=== PATIENT | male | born 1940 | race Caucasian/White ===

== ENCOUNTER 2017-07-21 21:55 | Inpatient (IN) | payer MEDICARE, BC ==
[~2017-07-21] VITALS: Ht 172.7 cm; Wt 68.0 kg
--- NOTE | 2017-07-21 22:24 | NUR ---
PT BIB [employer] ON 5150 HOLD FOR DTS/DTO, HAVING AUDITORY AND VISUAL HALLUCINATIONS. AOX1 W/ RESP EVEN & UNLABORED, DENIES ANY PAIN OR MEDICAL COMPLAINTS AT THIS TIME, CALM AND COOPERATIVE W/ NAD NOTED.
--- NOTE | 2017-07-21 22:37 | NUR ---
pharmacy picking tech at bedside for blood draw. Ambulatory w/ steady gait to restroom, urine obtained & sent to lab.
[2017-07-21 22:55] LABS: BASOPHILS # (AUTO) 0.1 /CMM (0.0-0.2); BASOPHILS % (AUTO) 1.3 % (0.0-2.0); EOSINOPHILS # (AUTO) 0.1 /CMM (0.0-0.7); EOSINOPHILS % (AUTO) 0.9 % (0.0-6.0); HEMATOCRIT 32 % (39-51); HEMOGLOBIN 10.3 g/dL (13.5-17.5); LYMPHOCYTES # (AUTO) 0.6 /CMM (0.8-4.8); LYMPHOCYTES % (AUTO) 7.3 % (20.0-44.0); MEAN CORPUSCULAR HEMOGLOBIN 31 PG (26.0-33.0); MEAN CORPUSCULAR HGB CONC 32 g/dl (31.0-36.0); MEAN CORPUSCULAR VOLUME 94 fL (80-96); MONOCYTES # (AUTO) 0.7 /CMM (0.1-1.30); NEUTROPHILS # (AUTO) 6.8 /CMM (1.8-8.9); NEUTROPHILS % (AUTO) 82.5 % (43.0-81.0); PLATELET COUNT (AUTO) 287 /CMM (150-450); RDW COEFFICIENT OF VARIATION 19.3 (11.5-15.0); RED BLOOD CELL COUNT(AUTO) 3.36 MIL/uL (4.5-6.0); WHITE BLOOD COUNT (AUTO) 8.3 K/uL (4.3-11.0)
--- NOTE | 2017-07-21 23:00 | NUR ---
Report given to LASHELL Ferguson for pt DEMARCO, pt admission to [facility] rm [id number].
[2017-07-21] MEDS ORDERED: HYDR25TA4 PO (23:01)
[2017-07-21] MEDS ORDERED: LISI-603 PO (23:01)
[2017-07-21] MEDS ORDERED: PRED20TA PO (23:01)
[2017-07-21] MEDS ORDERED: CLOP75TA2 PO (23:01)
[2017-07-21 23:11] LABS: CARBON DIOXIDE 30 mmol/L (21-32); CHLORIDE 105 mmol/L (98-107); GLUCOSE 77 mg/dL (74-106); POTASSIUM 5.5 mmol/L (3.5-5.1); SODIUM SERUM 145 mmol/L (136-145); UREA NITROGEN, BLOOD 30 mg/dL (7-18)
[2017-07-21 23:15] LABS: BILIRUBIN,URINE 2+ (NEGATIVE); BLOOD, URINE 1+ Ery/uL (NEGATIVE); COLOR,URINE YELLOW (YELLOW); KETONES,URINE 1+ (NEGATIVE); LEUKOCYTE ESTERASE ,URINE NEGATIVE (NEGATIVE); NITRITE, URINE NEGATIVE (NEGATIVE); PH,URINE 5.5 (5.0-8.0); PROTEIN,URINE 1+ mg/dl (NEGATIVE); UGLUCOSE NEGATIVE (NEGATIVE); UROBILINOGEN,URINE 0.2 EU/dL (0.2)
[2017-07-21 23:22] LABS: APPEARANCE,URINE HAZY (CLEAR)
[2017-07-21 23:23] LABS: ALANINE AMINOTRANSFERASE 23 U/L (12-78); ALBUMIN 3.1 g/dL (3.4-5.0); ALCOHOL, BLOOD < 3 mg/dL (0-0); ALKALINE PHOSPHATASE 88 U/L (46-116); ASPARTATE AMINOTRANSFERASE 31 U/L (15-37); BILIRUBIN,DIRECT 0.2 mg/dL (0.0-0.2); BILIRUBIN,TOTAL 0.7 mg/dL (0.2-1.0); SALICYLATE 2.9 mg/dL (2.8-20.0)
[2017-07-21 23:27] LABS: BACTERIA,URINE None seen /HPF (None Seen); HYALINE CASTS, URINE Few /LPF (None Seen); SQUAMOUS EPITHELIAL CELL,UR Few /HPF (None Seen)
[2017-07-21 23:29] LABS: ACETAMINOPHEN 0 ug/ml (10-30)
[2017-07-22] VITALS: BP 133/85
[2017-07-22] MEDS ORDERED: MAGNESIUM HYDROXIDE 30 ML UDC PO PRN (00:30)
[2017-07-22] MEDS ORDERED: ACETAMINOPHEN 325 MG TABLET PO PRN (00:30)
[2017-07-22] MEDS ORDERED: MAG HYDROX/AL HYDROX/SIMETH 30 ML UDC PO PRN (00:30)
[2017-07-22] MEDS ORDERED: QUET25TA PO (00:35)
[2017-07-22] MEDS ORDERED: BUDE0.5A NEB (00:36)
[2017-07-22] MEDS ORDERED: ALBU8.5H2 PO (00:36)
[2017-07-22] MEDS ORDERED: BUDE0.5A4 (00:36)
[2017-07-22] MEDS ORDERED: BUPR150T10 PO (00:36)
[2017-07-22] MEDS ORDERED: GABA100C PO (00:36)
[2017-07-22] MEDS ORDERED: CLON0.5T4 PO (00:36)
[2017-07-22] MEDS ORDERED: TAMS0.4C34 PO (00:36)
[2017-07-22] MEDS ORDERED: TRAZ-144 PO (00:36)
[2017-07-22] MEDS ORDERED: METO-302 PO (00:36)
[2017-07-22] MEDS ORDERED: GABA-532 PO (00:36)
[2017-07-22] MEDS ORDERED: ALBUTEROL SULFATE 8 GM HFA.AER.AD IH SCH (01:00)
--- NOTE | 2017-07-22 02:06 | NUR ---
ADMISSION NOTES ADMITTED THIS 77 Y/O MALE PATIENT ADMIT FROM [facility] ER , PT. INTIALLY CAME FROM HOME. PT IS ON 5150 HOLD FOR , DANGER TO HER SELF , DANGER TO OTHERS PER HOLD PARANOID, THINKS [employer] ARE GOING INTO HIS HOUSE, NEIGHBOR APPARENTLY CALLED [employer] BECAUSE HE WAS OUTSIDE THEIR HOUSE SWING A LARGE SWORD , DELUSIONAL, PARANOID, AUDITORY AND VISUAL HALLUCINATION. UPON FACE TO FACE ASSESSMENT PATIENT IS A&O X1-2, DEPRESSED DISORGANIZED ANXIOUS , EASILY AGITATED ,THE PT. MOOD DEPRESSED PT. IS POOR HISTORIAN, POOR INSIGHT ,POOR JUDGEMENT ,V/S WNL, NO ACUTE RESPIRATORY ,MD AWARE AND NOTIFIED OF THE ADMISSION, PT. REFUSED TO SIGNS ON ADMISSION DOCMENTS AND , SKIN ASSESSMENT DONE, PICTURES TAKEN AND PLACED IN THE CHART. BELONGINGS AND CONTRABAND CHECKED AND PLACED IN THE SAFE CABINET. PATIENT RIGHT HAND BOOK GIVEN AND EXPLAINED TO THE PT. ALL NEEDS ATTENDED AND ANTICIPATED.ENCOURAGED PT. VERVALIZED ANY FEELING OR CONCERN TO STAFF, ORIENTED TO UNIT WILL CONTINUE TO MONITOR FOR SAFETY AND BEHAVIOR.
[2017-07-22 07:26] LABS: CALCIUM, SERUM 9.2 mg/dL (8.5-10.1); CHLORIDE 105 mmol/L (98-107); CREATININE 1.7 mg/dL (0.6-1.3); GLUCOSE 87 mg/dL (74-106); SODIUM SERUM 143 mmol/L (136-145); UREA NITROGEN, BLOOD 26 mg/dL (7-18)
[2017-07-22 07:30] LABS: CARBON DIOXIDE 29 mmol/L (21-32)
[2017-07-22] MEDS ORDERED: BUDESONIDE RESPULE INH 0.25 MG/2 ML AMPUL.NEB NEB SCH (08:30)
[2017-07-22] MEDS ORDERED: ALBUTEROL FS 2.5 MG/3 ML VIAL.NEB NEB PRN (08:30)
[2017-07-22] MEDS: predniSONE 20 MG TABLET PO SCH (08:37)
[2017-07-22] MEDS: CLOPIDOGREL BISULFATE 75 MG TABLET PO SCH (08:37)
[2017-07-22] MEDS: GABAPENTIN 100 MG CAPSULE PO SCH ×3 (08:37→16:16)
[2017-07-22] MEDS: TAMSULOSIN 0.4 MG CAP.SR.24H PO SCH (08:37)
[2017-07-22] MEDS: METOPROLOL SUCCINATE 25 MG TAB.SR.24H PO SCH (08:38)
[2017-07-22] MEDS: HYDROCHLOROTHIAZIDE 25 MG TABLET PO SCH (08:38)
[2017-07-22 08:43] VITALS: BP 148/87
[2017-07-22] MEDS ORDERED: BUDESONIDE 0.5 MG SCH (09:00)
[2017-07-22] MEDS ORDERED: LISINOPRIL (20MG) 20 MG TABLET PO SCH (09:00)
[2017-07-22] MEDS: QUETIAPINE FUMARATE 100 MG TABLET PO SCH ×2 (12:30→16:15)
--- NOTE | 2017-07-22 12:50 | NUR ---
GPS RN NOTE: PER DR EMILY Rocha ORDER NEPHROLOGY CONSULT DR NEELIMA KNIGHT , ORDER PLACED ,DR ANTONIO.
[2017-07-22] MEDS: BUPROPION XL 150 MG TAB.ER.24 PO SCH (13:47)
--- NOTE | 2017-07-22 14:12 | NUR ---
Initial discharge plan: [place] [id number] [place] [address] / . SW international relations professor left a message for the pt.s son (Grady Ray- [phone]). SW to communicate with his son regarding most appropriate discharge plan and SW will assess for safety of patient's home- as patient possibly owns weapons. Assigned JOVITA Patten to follow up. SW to help and form safe and proper discharge.
[2017-07-22 16:00] VITALS: BP 103/57
[2017-07-22] MEDS: BUDESONIDE RESPULE INH 0.5 MG/2 ML AMPUL.NEB NEB SCH ×2 (16:56→20:17)
--- NOTE | 2017-07-22 16:56 | NUR ---
RT NOTE: PATIENT RECEIVED FROM RT(KALEN) WITH MISSED MEDICATION. PATIENT WOKEN UP BUT REFUSED TREATMENT AND WANT TO START RESPIRATORY TREATMENT ON THE NEXT SCHEDULED TIME. NO SOB NOTED. WILL ENDORSE TO NOC RT.
--- NOTE | 2017-07-22 19:30 | NUR ---
GPS RN NOTE, RECEIVED PATIENT AWAKE AND IN BED NO S/S OR COMPLAINTS OF PAIN AT THIS TIME. PATIENT IS DISPLAYING NO S/S OF APPARENT DISTRESS AT THIS TIME. PATIENT BREATHING IS UNLABORED WITH EQUAL RISE AND FALL OF THE CHEST. PATIENT IS ALERT AND ORIENTED X2 ON ROOM AIR WITH A SPOO2 94 %. PATIENT IS MED COMPLIANT, DISORGANIZED, CONFUSED AT TIMES, DEPRESSED, ISOLATIVE, AND NEEDS REORIENTATION. PATIENT DENIES SUICIDE IDEATIONS AND HOMICIDAL IDEATIONS AT THIS TIME. PATIENT ASSISTED WITH TURNING AND REPOSITIONING Q2HR AND PRN FOR COMFORT AND CIRCULATION. PATIENT HAS NO NEEDS AT THIS TIME. PATIENT EDUCATED ON THE USE OF THE CALL SUAZO. PATIENT BED SIDE RAILS UP X 2 FOR SAFETY. PATIENT BED IS LOCKED AND LOW WILL CONTINUE TO MONITOR AND MAINTAIN SAFETY Q15 MIN WITH THE HELP OF STAFF.
[2017-07-22 20:14] VITALS: BP 95/53
[2017-07-22] MEDS: TRAZODONE 50 MG TABLET PO SCH (21:38)
--- NOTE | 2017-07-22 21:42 | NUR ---
GPS RN NOTE, PATIENT REFUSED TO TAKE SEROQUEL 50 MG PO HS. OFFERED SEROQUEL THREE TIMES AND STILL PATIENT REFUSED STATING, " I DON'T MEDICATION IT'S NOT NATURAL FOR MY BODY ". EDUCATED THE PATIENT ON THE RISKS AND BENEFITS OF TAKING AND REFUSING AFOREMENTIONED MEDICATION. WILL CONTINUE TO MONITOR THIS PATIENT CLOSELY.
--- NOTE | 2017-07-23 07:00 | NUR ---
RN OPENING NOTE PT RESTING CALM IN BED. DENIES SI/HI. DENIES AVH. MOVES ALL EXT. A&OX2. FREE FROM INJURY AT PRESENT. WILL CONT TO MONITOR.
[2017-07-23] MEDS: BUDESONIDE RESPULE INH 0.5 MG/2 ML AMPUL.NEB NEB SCH ×2 (07:34→19:22)
[2017-07-23] MEDS: QUETIAPINE FUMARATE 100 MG TABLET PO SCH ×2 (08:30→16:28)
[2017-07-23] MEDS: BUPROPION XL 150 MG TAB.ER.24 PO SCH (08:30)
[2017-07-23] MEDS: CLOPIDOGREL BISULFATE 75 MG TABLET PO SCH (08:30)
[2017-07-23] MEDS: TAMSULOSIN 0.4 MG CAP.SR.24H PO SCH (08:30)
[2017-07-23] MEDS: METOPROLOL SUCCINATE 25 MG TAB.SR.24H PO SCH (08:30)
[2017-07-23] MEDS: predniSONE 20 MG TABLET PO SCH (08:30)
[2017-07-23] MEDS: HYDROCHLOROTHIAZIDE 25 MG TABLET PO SCH (08:31)
[2017-07-23] MEDS: GABAPENTIN 100 MG CAPSULE PO SCH ×3 (08:31→16:27)
[2017-07-23 09:05] VITALS: BP 131/82
[2017-07-23 09:16] LABS: ALANINE AMINOTRANSFERASE 17 U/L (12-78); ALBUMIN 2.4 g/dL (3.4-5.0); ALKALINE PHOSPHATASE 74 U/L (46-116); ASPARTATE AMINOTRANSFERASE 15 U/L (15-37); BILIRUBIN,TOTAL 0.3 mg/dL (0.2-1.0); CALCIUM, SERUM 9.3 mg/dL (8.5-10.1); CARBON DIOXIDE 37 mmol/L (21-32); CHLORIDE 105 mmol/L (98-107); CREATININE 1.4 mg/dL (0.6-1.3); GLUCOSE 89 mg/dL (74-106); POTASSIUM 3.8 mmol/L (3.5-5.1); SODIUM SERUM 143 mmol/L (136-145); UREA NITROGEN, BLOOD 32 mg/dL (7-18)
[2017-07-23 09:18] LABS: CHOLESTEROL 135 mg/dL (<200); HDL CHOLESTEROL 49 mg/dL (40-60); LDL 68 mg/dL (0-99); TRIGLYCERIDES 74 mg/dL (30-150)
--- NOTE | 2017-07-23 10:43 | NUR ---
relay worker faxed initial review packet to [facility] (phone: [phone]/ fax: [phone]) Elkin W [facility]ys[facility] o[facility]ns. [facility] [id number]. relay worker will follow-up.
[2017-07-23 16:32] VITALS: BP 107/69
--- NOTE | 2017-07-23 18:46 | NUR ---
RN CLOSING NOTE PT RESTING CALM IN BED. DENIES SI/HI. DENIES AVH. MOVES ALL EXT. A&OX2. FREE FROM INJURY AT PRESENT. WILL ENDORSE TO IRIS LOBO.
[2017-07-23 19:56] VITALS: BP 109/80
[2017-07-23 20:00] VITALS: BP 109/80
[2017-07-23] MEDS: TRAZODONE 50 MG TABLET PO SCH (21:08)
[2017-07-24 08:00] VITALS: BP 127/65
[2017-07-24] MEDS: BUDESONIDE RESPULE INH 0.5 MG/2 ML AMPUL.NEB NEB SCH (08:23)
[2017-07-24] MEDS: GABAPENTIN 100 MG CAPSULE PO SCH ×3 (11:10→17:36)
[2017-07-24] MEDS: QUETIAPINE FUMARATE 100 MG TABLET PO SCH ×2 (11:10→17:34)
[2017-07-24] MEDS: BUPROPION XL 150 MG TAB.ER.24 PO SCH (11:10)
[2017-07-24] MEDS: TAMSULOSIN 0.4 MG CAP.SR.24H PO SCH (11:10)
[2017-07-24] MEDS: METOPROLOL SUCCINATE 25 MG TAB.SR.24H PO SCH (11:11)
[2017-07-24] MEDS: predniSONE 20 MG TABLET PO SCH (11:11)
[2017-07-24] MEDS: HYDROCHLOROTHIAZIDE 25 MG TABLET PO SCH (11:11)
[2017-07-24] MEDS: CLOPIDOGREL BISULFATE 75 MG TABLET PO SCH (11:12)
[2017-07-24 11:45] VITALS: BP 101/60
--- NOTE | 2017-07-24 11:56 | NUR ---
RN-CO: Around 11:45 am , ANODIC TREATER found patient on the floor, lying down, face down. He is awake, alert and deny pain. However patient is confused and unable to elaborate what happened. Noted a abrasion on the nose 0.5 cm x 0.1 cm., and a laceration of 0.5 x 0.[address] Velasco, then she came to see and examined the patient with order of a suture ( from ER staff) the discharge the patient to telemetry for further evaluation. Dr Peres who was covering for Dr Newberry was notified as well as the dewatering filtering supervisor. The wounds was cleansed and dressing was done. Patient denied any body pain and discomforts aside from the sustained laceration.
--- NOTE | 2017-07-24 12:25 | NUR ---
RN-CO: Patient's son was notified about the incident, and the order of Dr Velasco to discharge him to Telemetry for further evaluation. vital signs: 101/60,99.91%,98.
[2017-07-24 14:05] VITALS: BP 100/70
--- NOTE | 2017-07-24 14:05 | NUR ---
RN NOTES PATIENT BACK FROM ER, HAS A 4 SUTURES ON UNDER CHIN, INTACT, NO BLEEDING, V/S TAKEN BP -100 70, P-94, T-98.5, R-18, O2 -94 ROOM AIR. PATIENT CONFUSED, UNSTEADY GAIT, 1:1 SITTER NEXT TO THE BED FOR SAFETY. PATIENT GOING TO TRANSFER TELE UNIT PER MD ORDER. CALL SUAZO NEAR TO REACH, BED ALARM ON SAFETY PRECAUTION MAINTAINED ALL THE TIME. PICTURE TAKEN.
--- NOTE | 2017-07-24 14:10 | NUR ---
RN-CO:Dr. Luz was notified of the order to discharge patient to telemetry. Dr Luz ordered to continue 72 hour hold and discharge patient to telemetry, noted and carried out. Still waiting for the RN space control supervisor to call for the room. Patient was also sutured on the chin at the emergency department(escorted by staff), came back in a stable condition.
[2017-07-24 16:00] VITALS: BP 101/61
--- NOTE | 2017-07-24 18:15 | NUR ---
DISCHARGE NOTES PATIENT DISCHARGE AT THIS TIME TO THE TELE ROOM [address] DIAZ DX OF FALL, AND HAS A LACERATION UNDER THE CHIN,AND 4 SUTURES PUT ON ER. PATIENT A/O X2/3, MED COMPLIANT, V/S TAKEN BP- 101/61, P- 87, R-18, T-98.3, 02 ROOM AIR. ESCORTED PATIENT ON WHEELCHAIR WITH 1:1 SITTER FOR SAFETY. PATIENT ON [address] WHTILOCK, CHING AND CONTRABAND RETURNED BACK TO THE PATIENT, FAMILY AWARE OF DISCHARGE. BEDSIDE REPORT GIVEN LASHELL ABAD. RN VERBALIZED UNDERSTANDING.
[2017-07-24] MEDS ORDERED: ACET-868 PO (19:01)
[2017-07-24] MEDS ORDERED: MAG30ORA PO (19:01)
[2017-07-24] MEDS ORDERED: BUPR300T52 PO (19:01)
[2017-07-24] MEDS ORDERED: ALBU2.5V38 IH (19:01)
[2017-07-24] MEDS ORDERED: MAGN400O6 PO (19:01)
[2017-07-24] MEDS ORDERED: QUET25TA PO (19:01)
== END 2017-07-24 18:13 | disposition short-term general hospital (02) | DRG 885 ==
LOC: ER 21:59 → GPS 23:10
PROVIDERS: ADMIT Psychiatry & Neurology Psychiatry; ATTEND Psychiatry & Neurology Psychiatry
DX: F25.9 Schizoaffective disorder, unspecified (principal); N17.0 Acute kidney failure with tubular necrosis; N18.9 Chronic kidney disease, unspecified; J44.9 Chronic obstructive pulmonary disease, unspecified; F29 Unspecified psychosis not due to a substance or known physiological condition; D64.9 Anemia, unspecified; I12.9 Hypertensive chronic kidney disease with stage 1 through stage 4 chronic kidney disease, or unspecified chronic kidney disease; Z79.899 Other long term (current) drug therapy; Z79.02 Long term (current) use of antithrombotics/antiplatelets; Z73.6 Limitation of activities due to disability; I25.10 Atherosclerotic heart disease of native coronary artery without angina pectoris; R55 Syncope and collapse; N40.0 Benign prostatic hyperplasia without lower urinary tract symptoms
CPT/HCPCS: 36415; 80048-TC; 80053-TC; 80061-TC; 80076-TC; 80305; 81000-TC; 85025-TC; 87081-TC; G0480

== ENCOUNTER 2017-07-24 18:51 | Inpatient (IN) | payer MEDICARE, BC ==
[~2017-07-24] VITALS: Ht 172.7 cm; Wt 66.7 kg
[~2017-07-24 18:51] MED LIST: ALBU8.5H2 PO; BUDE0.5A NEB; BUDE0.5A4; CLOP75TA2 PO; GABA-532 PO; GABA100C PO; HYDR25TA4 PO; LISI-603 PO; METO-302 PO; PRED20TA PO; TAMS0.4C34 PO
[2017-07-24] MEDS ORDERED: ACET-868 PO (19:01)
[2017-07-24] MEDS ORDERED: MAG30ORA PO (19:01)
[2017-07-24] MEDS ORDERED: QUET25TA PO (19:01)
[2017-07-24] MEDS ORDERED: ALBU2.5V38 IH (19:01)
[2017-07-24] MEDS ORDERED: MAGN400O6 PO (19:01)
[2017-07-24] MEDS ORDERED: BUPR300T52 PO (19:01)
[2017-07-24 20:00] VITALS: BP 131/60
--- NOTE | 2017-07-24 20:00 | NUR ---
RN INITIAL ADIMITTING NOTES RECEIVED 77 YR OLD IN BED, AWAKE, AOX2-3, WITH CONFUSION, AT TIMES TALKING TO THE WALL, CLAIMING TO BE TALKING TO THE SON, RE ORIENTED PT ABOUT WHERE ABOUT. ON R/A N0 SIGN OF SOB, DENIES ANY PAIN. S/P FALL, WITH 1:1 SITTER @ THIS TIME, WELL LOW BP MONITORING FOR ORTHOSTATIC BP MEASURE 91/ 58 SUPINE, BED SIDE, 95/59 AND STANDING 101/59. HEAD TO TOE ASSESSMENT COMPLETED NOTED WITH STICHES @ LOWER CHIN REST OF BODY INTACT, AMBULATORY WITH UNSTAEDY GAIT WITH ASSIST, FALL PRECAUTION PLACE, WILL CONT TO MONITOR. ALL ADMITTING ORDERS ENTERED. BY DR DIAZ.
[2017-07-24] MEDS ORDERED: MAGNESIUM HYDROXIDE 30 ML UDC PO PRN ×2 (21:30)
[2017-07-24] MEDS ORDERED: ONDANSETRON HCL/PF 4 MG/2 ML VIAL IVP PRN (21:30)
[2017-07-24] MEDS ORDERED: MAG HYDROX/AL HYDROX/SIMETH 30 ML UDC PO PRN ×2 (21:30)
[2017-07-24] MEDS ORDERED: ACETAMINOPHEN 325 MG TABLET PO PRN ×2 (21:30)
[2017-07-24] MEDS ORDERED: Z GUARD REMEDY 2 OZ OINT TP PRN (21:30)
--- NOTE | 2017-07-24 21:55 | NUR ---
INFORMED RADIOLOGY REGARDING IMAGING ORDERS. PER TECH, WILL BE DONE TOMORROW, THEY WONT BE ABLE TO DO TODAY DUE TO BEING BUSY WITH ER. INFORMED PRIMARY NURSE.
[2017-07-25] VITALS (7 sets, daily range): BP systolic 79–136; BP diastolic 54–89
--- NOTE | 2017-07-25 06:24 | NUR ---
PROSTHETICS TECHNICIAN CLOSING NOTES ENDORSED PT IN BED, AWAKE, AOX2-3, WITH CONFUSION, AT TIMES TALKING TO THE WALL, CLAIMING TO BE TALKING TO THE SON, RE ORIENTED PT ABOUT WHERE ABOUT. ON R/A N0 SIGN OF SOB, DENIES ANY PAIN. S/P FALL, WITH 1:1 SITTER @ THIS TIME, WELL LOW BP MONITORING FOR ORTHOSTATIC BP. WILL ENDORSE TO AM NURSE TO F/U ON ALL LABS ORDERED IN AM, WELL CT HEAD WO CONTRAST AMBULATORY WITH UNSTAEDY GAIT WITH ASSIST, FALL PRECAUTION PLACE, WILL CONT TO MONITOR.
[2017-07-25 07:23] LABS: BASOPHILS % (AUTO) 0.1 % (0.0-2.0); HEMATOCRIT 32 % (39-51); HEMOGLOBIN 10.6 g/dL (13.5-17.5); LYMPHOCYTES # (AUTO) 0.3 /CMM (0.8-4.8); MEAN CORPUSCULAR HEMOGLOBIN 31 PG (26.0-33.0); MEAN CORPUSCULAR HGB CONC 33 g/dl (31.0-36.0); MEAN CORPUSCULAR VOLUME 94 fL (80-96); MONOCYTES # (AUTO) 0.6 /CMM (0.1-1.30); MONOCYTES % (AUTO) 7.3 % (2.0-12.0); NEUTROPHILS # (AUTO) 7.7 /CMM (1.8-8.9); NEUTROPHILS % (AUTO) 88.6 % (43.0-81.0); PLATELET COUNT (AUTO) 244 /CMM (150-450); RDW COEFFICIENT OF VARIATION 19.5 (11.5-15.0); RED BLOOD CELL COUNT(AUTO) 3.36 MIL/uL (4.5-6.0); WHITE BLOOD COUNT (AUTO) 8.7 K/uL (4.3-11.0)
[2017-07-25 07:24] LABS: APPEARANCE,URINE CLEAR (CLEAR); BILIRUBIN,URINE NEGATIVE (NEGATIVE); BLOOD, URINE TRACE Ery/uL (NEGATIVE); COLOR,URINE YELLOW (YELLOW); KETONES,URINE NEGATIVE (NEGATIVE); LEUKOCYTE ESTERASE ,URINE NEGATIVE (NEGATIVE); NITRITE, URINE NEGATIVE (NEGATIVE); PROTEIN,URINE NEGATIVE (NEGATIVE); UGLUCOSE NEGATIVE (NEGATIVE); UROBILINOGEN,URINE 0.2 EU/dL (0.2)
[2017-07-25 07:31] LABS: CALCIUM, SERUM 9.8 mg/dL (8.5-10.1); CARBON DIOXIDE 37 mmol/L (21-32); CHLORIDE 98 mmol/L (98-107); CREATININE 1.3 mg/dL (0.6-1.3); GLUCOSE 95 mg/dL (74-106); SODIUM SERUM 139 mmol/L (136-145); UREA NITROGEN, BLOOD 33 mg/dL (7-18)
[2017-07-25 07:37] LABS: ALANINE AMINOTRANSFERASE 20 U/L (12-78); ALBUMIN 2.5 g/dL (3.4-5.0); ALKALINE PHOSPHATASE 75 U/L (46-116); ASPARTATE AMINOTRANSFERASE 21 U/L (15-37); BILIRUBIN,TOTAL 0.4 mg/dL (0.2-1.0); MAGNESIUM 1.9 mg/dL (1.8-2.4); PHOSPHORUS 3.3 mg/dL (2.5-4.9); TOTAL PROTEIN, SERUM 6.3 g/dL (6.4-8.2)
[2017-07-25 07:52] LABS: CHOLESTEROL 148 mg/dL (<200); HDL CHOLESTEROL 50 mg/dL (40-60); LDL 77 mg/dL (0-99); TRIGLYCERIDES 92 mg/dL (30-150)
--- NOTE | 2017-07-25 08:00 | NUR ---
TELE1/RN AM SHIFT INITIAL NOTES RECEIVED PT AWAKE SITTING IN BED, NO ACUTE CHANGE OF CONDITION NOTED. PT A/O X 2, DENIES ANY SYMPTOMS, NOTED WITH VISUAL HALLUCINATION. COOPERATIVE. ON ROOM AIR SATURATING @ 94%, LUNG SOUNDS CLEAR. ON TELE WITH SINUS RHYTHM, HR 89. PT HAS NO IV SITE AT THIS TIME. PT IS COMFORTABLE AT THIS TIME. SCHEDULED AM MEDS TO BE GIVEN. SITTER AT BEDSIDE. CL WITHIN REACHED AND SAFETY MAINTAINED. ON GOING MONITORING.
[2017-07-25 08:42] LABS: BACTERIA,URINE Rare /HPF (None Seen); RBC,URINE 0-2 /HPF (0-2); SQUAMOUS EPITHELIAL CELL,UR Rare /HPF (None Seen)
[2017-07-25] MEDS ORDERED: BUPROPION XL 150 MG TAB.ER.24 PO SCH (09:00)
[2017-07-25] MEDS ORDERED: HYDROCHLOROTHIAZIDE 25 MG TABLET PO SCH (09:00)
[2017-07-25] MEDS: predniSONE 20 MG TABLET PO SCH (09:38)
[2017-07-25] MEDS: LISINOPRIL (20MG) 20 MG TABLET PO SCH (09:38)
[2017-07-25] MEDS: GABAPENTIN 100 MG CAPSULE PO SCH ×3 (09:38→16:30)
[2017-07-25] MEDS: CLOPIDOGREL BISULFATE 75 MG TABLET PO SCH (09:38)
[2017-07-25] MEDS: QUETIAPINE FUMARATE 25 MG TABLET PO SCH ×2 (09:39→16:30)
[2017-07-25] MEDS: ALBUTEROL FS 2.5 MG/3 ML VIAL.NEB IH PRN (10:21)
[2017-07-25] MEDS: BUDESONIDE RESPULE INH 0.5 MG/2 ML AMPUL.NEB IH SCH ×2 (10:22→19:20)
--- NOTE | 2017-07-25 11:00 | NUR ---
TELE1/RN ROUNDS - DR. DIAZ PT SEEN & EXAMINED BY DR. DIAZ, NO NEW ORDERS RECEIVED AT THIS TIME. MONITORING CONTINUED.
[2017-07-25] MEDS: IV NS 0.9% 1,000 ML IV PRN ×2 (11:11→18:29)
--- NOTE | 2017-07-25 13:17 | NUR ---
TELE1/RN ROUNDS - DR. GUY PT SEEN & EXAMINED BY DR. GUY. NO NEW ORDERS RECEIVED AT THIS TIME. MONITORING CONTINUED.
--- NOTE | 2017-07-25 16:30 | NUR ---
TELE1/RN AFTERNOON ROUNDS PT SITTING IN BED WITH SITTER AT BEDSIDE. NO CHANGE OF CONDITION. ON GOING MONITORING.
--- NOTE | 2017-07-25 19:36 | NUR ---
TELE1/RN AM SHIFT END NOTES ALL NEEDS MET. NO CHANGE OF CONDITION NOTED DURING THE SHIFT. PT ENDORSED TO PM NURSE TO CONTINUE CARE. SITTER AT BEDSIDE, SAFETY MAINTAINED.
--- NOTE | 2017-07-25 19:56 | NUR ---
TELE1 RN INITIAL NOTES RECEIVED PT AWAKE SITTING IN BED, NO ACUTE CHANGE OF CONDITION NOTED. PT A/O X 2, DENIES ANY SYMPTOMS, NOTED WITH VISUAL HALLUCINATION. COOPERATIVE. ON ROOM AIR SATURATING @ 94%, LUNG SOUNDS CLEAR. ON TELE WITH SINUS RHYTHM, HR 89. PT HAS SAHIL MIDLINE W NS @ 125ML/HR, WELL BASIM, NO SIGN OF FLUID VOL EXCESS OR INFILTRATION @ SITE, V/S STABLE @ THIS TIME. PT IS COMFORTABLE AT THIS TIME. SCHEDULED AM MEDS TO BE GIVEN. SITTER AT BEDSIDE. CL WITHIN REACHED AND SAFETY MAINTAINED. ON GOING MONITORING.
[2017-07-25] MEDS: HYDROCODONE/APAP 5/325MG 1 EACH TABLET PO PRN (20:55)
[2017-07-26] VITALS (8 sets, daily range): BP systolic 95–153; BP diastolic 53–96
[2017-07-26] MEDS: IV NS 0.9% 1,000 ML IV PRN ×2 (02:36→11:43)
[2017-07-26] MEDS: HYDROCODONE/APAP 5/325MG 1 EACH TABLET PO PRN (06:21)
--- NOTE | 2017-07-26 06:23 | NUR ---
TELE1 RN CLOSING NOTES ENDORSED PT AWAKE SLEEPING IN BED, NO ACUTE CHANGE OF CONDITION NOTED. PT A/O X 2, DENIES ANY SYMPTOMS, NOTED WITH VISUAL HALLUCINATION. COOPERATIVE. ON ROOM AIR SATURATING @ 94%, LUNG SOUNDS CLEAR. ON TELE WITH SINUS RHYTHM, HR 89. PT HAS SAHIL MIDLINE W NS @ 125ML/HR, WELL BASIM, NO SIGN OF FLUID VOL EXCESS OR INFILTRATION @ SITE, V/S STABLE @ THIS TIME. PT IS COMFORTABLE AT THIS TIME. SCHEDULED AM MEDS TO BE GIVEN. SITTER AT BEDSIDE. CL WITHIN REACHED AND SAFETY MAINTAINED. ON GOING MONITORING.
[2017-07-26 07:50] LABS: EOSINOPHILS # (AUTO) 0.1 /CMM (0.0-0.7); HEMATOCRIT 32 % (39-51); HEMOGLOBIN 10.3 g/dL (13.5-17.5); LYMPHOCYTES # (AUTO) 0.3 /CMM (0.8-4.8); LYMPHOCYTES % (AUTO) 3.1 % (20.0-44.0); MEAN CORPUSCULAR HEMOGLOBIN 31 PG (26.0-33.0); MEAN CORPUSCULAR HGB CONC 33 g/dl (31.0-36.0); MEAN CORPUSCULAR VOLUME 94 fL (80-96); MONOCYTES # (AUTO) 0.9 /CMM (0.1-1.30); MONOCYTES % (AUTO) 9.4 % (2.0-12.0); NEUTROPHILS # (AUTO) 8.6 /CMM (1.8-8.9); NEUTROPHILS % (AUTO) 86.5 % (43.0-81.0); PLATELET COUNT (AUTO) 260 /CMM (150-450); RDW COEFFICIENT OF VARIATION 19.1 (11.5-15.0); RED BLOOD CELL COUNT(AUTO) 3.36 MIL/uL (4.5-6.0); WHITE BLOOD COUNT (AUTO) 9.9 K/uL (4.3-11.0)
[2017-07-26 07:52] LABS: TROPONIN I < 0.017 ng/mL (0.00-0.056)
[2017-07-26 07:54] LABS: ALANINE AMINOTRANSFERASE 21 U/L (12-78); ALBUMIN 2.5 g/dL (3.4-5.0); ALKALINE PHOSPHATASE 73 U/L (46-116); ASPARTATE AMINOTRANSFERASE 21 U/L (15-37); BILIRUBIN,TOTAL 0.5 mg/dL (0.2-1.0); CALCIUM, SERUM 9.3 mg/dL (8.5-10.1); CARBON DIOXIDE 35 mmol/L (21-32); CHLORIDE 101 mmol/L (98-107); CREATININE 1.1 mg/dL (0.6-1.3); GLUCOSE 84 mg/dL (74-106); MAGNESIUM 1.9 mg/dL (1.8-2.4); PHOSPHORUS 2.7 mg/dL (2.5-4.9); POTASSIUM 3.8 mmol/L (3.5-5.1); SODIUM SERUM 139 mmol/L (136-145); TOTAL PROTEIN, SERUM 6.2 g/dL (6.4-8.2); UREA NITROGEN, BLOOD 32 mg/dL (7-18)
--- NOTE | 2017-07-26 08:00 | NUR ---
TELE1/RN AM SHIFT INITIAL NOTES RECEIVED PT ASLEEP IN BED WITH SITTER AT BEDSIDE. PT A/O X 1, CONFUSED, HAS VISUAL HALLUCINATIONS. FOLLOWS COMMAND, PLEASANT. ON ROOM AIR SATURATING @ 93%, ON TELE WITH SINUS TACHY, HR 114. WITH ON GOING IV HYDRATION OF NS @ 125CC/HR, MIDLINE PATENT WITH NO S/S OF INFECTION. PT IS COMFORTABLE AT THIS TIME. SAFETY MAINTAINED. ON GOING MONITORING.
[2017-07-26] MEDS: BUDESONIDE RESPULE INH 0.5 MG/2 ML AMPUL.NEB IH SCH ×2 (08:15→20:19)
[2017-07-26] MEDS: CLOPIDOGREL BISULFATE 75 MG TABLET PO SCH (09:13)
[2017-07-26] MEDS: GABAPENTIN 100 MG CAPSULE PO SCH ×3 (09:13→17:17)
[2017-07-26] MEDS: predniSONE 20 MG TABLET PO SCH (09:13)
[2017-07-26] MEDS: BUPROPION XL 150 MG TAB.ER.24 PO SCH (09:13)
[2017-07-26] MEDS: LISINOPRIL (20MG) 20 MG TABLET PO SCH (09:13)
[2017-07-26] MEDS: QUETIAPINE FUMARATE 25 MG TABLET PO SCH ×3 (09:14→20:38)
[2017-07-26 10:24] LABS: THYROID STIMULATING HORMONE 1.263 uIU/mL (0.358-3.74)
--- NOTE | 2017-07-26 11:25 | NUR ---
TELE1/RN ROUNDS - DR. GUY UPDATED PT'S CONDITION. PT SEEN & EXAMINED BY DR. GUY. NO NEW ORDERS RECEIVED AT THIS TIME. BUT NOTIFIED ME OF SOME ADJUSTMENT ON PSYCH MEDS, NOTED. MONITORING CONTINUED.
--- NOTE | 2017-07-26 17:30 | NUR ---
TELE1/RN AFTERNOON ROUNDS NO CHANGE OF CONDITION. MONITORING CONTINUED.
--- NOTE | 2017-07-26 19:05 | NUR ---
PIVOT END POLISHER OPENING NOTES RECEIVED REPORT FROM JENNIFFER LOBO. PATIENT A/A/O X2 W/ SOME AUDITORY HALLUCINATIONS NOTED. ABLE TO STATE PAIN ON PAIN SCALE. BREATHING EVEN & UNLABORED, ON ROOM AIR. DENIES SOB OR DIFFICULTY BREATHING. ON TELE SINUS TACH IN THE 100S. DENIES ANY CHEST PAIN OR DISCOMFORT. RIGHT UPPER ARM MIDLINE #18 INTACT & PATENT W/ DRESSING CDI & IVF NS @ 125 ML/HR. SAFETY MEASURES IN PLACE W/ SIDE RAILS UP, BED LOCKED IN LOWEST POSITION & CALL LIGHT WITHIN REACH. SITTER @ BEDSIDE. WILL CONTINUE TO MONITOR.
--- NOTE | 2017-07-26 20:15 | NUR ---
TELE1/RN AM SHIFT END NOTES NO ACUTE CHANGE OF CONDITION NOTED DURING THE SHIFT. ALL NEEDS MET. PT ENDORSED TO PM NURSE TO CONTINUE CARE. PT WITH SITTER AT BEDSIDE. SAFETY MAINTAINED.
[2017-07-27] VITALS: BP 145/93
[2017-07-27] MEDS: ALBUTEROL FS 2.5 MG/3 ML VIAL.NEB IH PRN (00:24)
[2017-07-27] MEDS: IV NS 0.9% 1,000 ML IV PRN ×4 (03:16→16:14)
[2017-07-27 04:00] VITALS: BP 151/96
[2017-07-27 07:10] LABS: EOSINOPHILS % (AUTO) 0.3 % (0.0-6.0); HEMATOCRIT 30 % (39-51); HEMOGLOBIN 9.9 g/dL (13.5-17.5); LYMPHOCYTES # (AUTO) 0.3 /CMM (0.8-4.8); LYMPHOCYTES % (AUTO) 3.1 % (20.0-44.0); MEAN CORPUSCULAR HEMOGLOBIN 31 PG (26.0-33.0); MEAN CORPUSCULAR HGB CONC 33 g/dl (31.0-36.0); MEAN CORPUSCULAR VOLUME 94 fL (80-96); MONOCYTES # (AUTO) 0.7 /CMM (0.1-1.30); MONOCYTES % (AUTO) 8.3 % (2.0-12.0); NEUTROPHILS # (AUTO) 7.6 /CMM (1.8-8.9); NEUTROPHILS % (AUTO) 88.3 % (43.0-81.0); PLATELET COUNT (AUTO) 256 /CMM (150-450); RDW COEFFICIENT OF VARIATION 19.4 (11.5-15.0); RED BLOOD CELL COUNT(AUTO) 3.21 MIL/uL (4.5-6.0); WHITE BLOOD COUNT (AUTO) 8.6 K/uL (4.3-11.0)
--- NOTE | 2017-07-27 07:15 | NUR ---
RN NOTES RECEIVED PATIENT AOX2-3 , DENIES AND SOB , DISCOMFORT SUICIDAL OR HOMICIDAL IDEATION AT THIS TIME , CALM AND COOPERATIVE , NO AUDITORY HALLUCINATIONS AT THIS TIME , ST 105 ON TELE MONITOR , SAHIL MIDLINE # 18 WITH NS @ 125ML/HR INFUSING WELL , ALL NEEDS ATTENDED , BED ON LOW AND LOCKED POSITION , SIDE RAILS X2 ,CALL LIGHT WITHIN REACH , HOB @ 35 , 1:1 SITTER AT BEDSIDE , WILL CONTINUE TO MONITOR
[2017-07-27] MEDS: BUDESONIDE RESPULE INH 0.5 MG/2 ML AMPUL.NEB IH SCH ×2 (07:30→19:46)
[2017-07-27 07:31] LABS: ALANINE AMINOTRANSFERASE 21 U/L (12-78); ALBUMIN 2.4 g/dL (3.4-5.0); ALKALINE PHOSPHATASE 70 U/L (46-116); ASPARTATE AMINOTRANSFERASE 21 U/L (15-37); BILIRUBIN,TOTAL 0.4 mg/dL (0.2-1.0); CALCIUM, SERUM 9.4 mg/dL (8.5-10.1); CARBON DIOXIDE 33 mmol/L (21-32); CHLORIDE 103 mmol/L (98-107); GLUCOSE 79 mg/dL (74-106); MAGNESIUM 1.9 mg/dL (1.8-2.4); PHOSPHORUS 2.9 mg/dL (2.5-4.9); POTASSIUM 3.9 mmol/L (3.5-5.1); SODIUM SERUM 140 mmol/L (136-145); TOTAL PROTEIN, SERUM 6.2 g/dL (6.4-8.2); UREA NITROGEN, BLOOD 27 mg/dL (7-18)
[2017-07-27 07:36] LABS: TROPONIN I < 0.017 ng/mL (0.00-0.056)
[2017-07-27 08:00] VITALS: BP_SYST 101; BP_SYST 117; BP_SYST 88; BP_DIAS 45; BP_DIAS 61; BP_DIAS 75
[2017-07-27] MEDS: BUPROPION XL 150 MG TAB.ER.24 PO SCH (08:31)
[2017-07-27] MEDS: CLOPIDOGREL BISULFATE 75 MG TABLET PO SCH (08:31)
[2017-07-27] MEDS: QUETIAPINE FUMARATE 25 MG TABLET PO SCH ×3 (08:31→20:45)
[2017-07-27] MEDS: predniSONE 20 MG TABLET PO SCH (08:31)
[2017-07-27] MEDS: GABAPENTIN 100 MG CAPSULE PO SCH ×3 (08:31→16:05)
[2017-07-27] MEDS: LISINOPRIL (20MG) 20 MG TABLET PO SCH (08:32)
--- NOTE | 2017-07-27 10:45 | NUR ---
RN NOTES SEEN AND EVALUATED BY DR DIAZ , SPO2 OF 98% VIA RA , NOT IN ACUTE DISTRESS , DISCUSSED LABS , MD AWARE . MEDICALLY CLEARED PER , SHAAN TO TRANSFER TO [facility] , AWAITING FOR ORDERERS
[2017-07-27 12:00] VITALS: BP 131/80
--- NOTE | 2017-07-27 15:27 | NUR ---
RN NOTES NOTIFIED DR DIAZ THAT PT IS HAVING PRODUCTIVE COUGH , ASKED FO COUGH SYRUP ORDER PRN , TELEPHONE ORDER OF ROBITUSSIN 5ML Q6 PRN CARRIED OUT
[2017-07-27] MEDS ORDERED: GUAIFENESIN/D-METHORPHAN HB 5 ML UDC PO PRN (15:30)
[2017-07-27 16:00] VITALS: BP 124/88
[2017-07-27 20:00] VITALS: BP_SYST 110; BP_SYST 120; BP_SYST 153; BP_DIAS 71; BP_DIAS 72; BP_DIAS 90
[2017-07-28] VITALS: BP 160/97
[2017-07-28] MEDS: HYDROCODONE/APAP 5/325MG 1 EACH TABLET PO PRN (00:52)
[2017-07-28 04:00] VITALS: BP 139/87
[2017-07-28 06:45] LABS: EOSINOPHILS # (AUTO) 0.1 /CMM (0.0-0.7); EOSINOPHILS % (AUTO) 0.8 % (0.0-6.0); HEMATOCRIT 31 % (39-51); HEMOGLOBIN 10.4 g/dL (13.5-17.5); LYMPHOCYTES # (AUTO) 0.4 /CMM (0.8-4.8); LYMPHOCYTES % (AUTO) 4.3 % (20.0-44.0); MEAN CORPUSCULAR HEMOGLOBIN 31 PG (26.0-33.0); MEAN CORPUSCULAR HGB CONC 33 g/dl (31.0-36.0); MEAN CORPUSCULAR VOLUME 94 fL (80-96); MONOCYTES # (AUTO) 0.9 /CMM (0.1-1.30); MONOCYTES % (AUTO) 9.3 % (2.0-12.0); NEUTROPHILS # (AUTO) 8.5 /CMM (1.8-8.9); NEUTROPHILS % (AUTO) 85.6 % (43.0-81.0); PLATELET COUNT (AUTO) 284 /CMM (150-450); RDW COEFFICIENT OF VARIATION 18.8 (11.5-15.0); RED BLOOD CELL COUNT(AUTO) 3.32 MIL/uL (4.5-6.0); WHITE BLOOD COUNT (AUTO) 9.9 K/uL (4.3-11.0)
[2017-07-28 07:05] LABS: ALANINE AMINOTRANSFERASE 30 U/L (12-78); ALBUMIN 2.6 g/dL (3.4-5.0); ALKALINE PHOSPHATASE 75 U/L (46-116); ASPARTATE AMINOTRANSFERASE 25 U/L (15-37); BILIRUBIN,TOTAL 0.5 mg/dL (0.2-1.0); CALCIUM, SERUM 9.6 mg/dL (8.5-10.1); CARBON DIOXIDE 32 mmol/L (21-32); CHLORIDE 103 mmol/L (98-107); CREATININE 1.1 mg/dL (0.6-1.3); GLUCOSE 78 mg/dL (74-106); MAGNESIUM 1.9 mg/dL (1.8-2.4); PHOSPHORUS 2.7 mg/dL (2.5-4.9); POTASSIUM 4.5 mmol/L (3.5-5.1); SODIUM SERUM 140 mmol/L (136-145); TOTAL PROTEIN, SERUM 6.4 g/dL (6.4-8.2); UREA NITROGEN, BLOOD 30 mg/dL (7-18)
--- NOTE | 2017-07-28 07:55 | NUR ---
MOLECULAR BIOLOGIST NOTE PATIENT IN BED , SITTER AT BEDSIDE ON HOLD 5250 ORDERED, ON RA ,NO SOB NOTED , ON TELE MONITOR ST 104 , HAVING BREAKFAST , ABLE TO EAT SELF , RT UPPER ARM MIDLINE IN PLACE, NO S\S INFECTION NOTED , ON IVF ORDERED, BED IN LOWEST AND LOCKED POSITION , ORTHOSTATIC BP DONE ORDERED ,RESPIRATION EVEN UNLABORED, WILL CONT TO MONITOR CLOSELY
[2017-07-28 08:00] VITALS: BP 153/90
[2017-07-28] MEDS: GABAPENTIN 100 MG CAPSULE PO SCH ×2 (08:23→12:45)
[2017-07-28] MEDS: predniSONE 20 MG TABLET PO SCH (08:23)
[2017-07-28] MEDS: CLOPIDOGREL BISULFATE 75 MG TABLET PO SCH (08:23)
[2017-07-28] MEDS: BUPROPION XL 150 MG TAB.ER.24 PO SCH (08:24)
[2017-07-28] MEDS: LISINOPRIL (20MG) 20 MG TABLET PO SCH (08:24)
[2017-07-28] MEDS: QUETIAPINE FUMARATE 25 MG TABLET PO SCH ×2 (08:24→12:45)
[2017-07-28] MEDS: BUDESONIDE RESPULE INH 0.5 MG/2 ML AMPUL.NEB IH SCH (08:27)
--- NOTE | 2017-07-28 09:00 | NUR ---
TUFTER NOTE ORTHOSTATIC BP DONE ORDERED
[2017-07-28 09:33] VITALS: BP 163/106
[2017-07-28 09:37] VITALS: BP 144/80
--- NOTE | 2017-07-28 10:41 | NUR ---
WORKFORCE MANAGEMENT MANAGER NOTE ENTRY LEVEL PROJECT COORDINATOR FROM [facility] AT BEDSIDE FOR EVAL AND MARY FROM EEG DOING NOW EEG
[2017-07-28 12:00] VITALS: BP 144/80
--- NOTE | 2017-07-28 13:00 | NUR ---
APPLICATION SERVICES MANAGER NOTE PER DR TORRES ORDER OK TO DISCHARGE TO [facility] , CALLED ASSOCIATE PROFESSOR OF CRIMINAL JUSTICE , BED IS AVAILABLE
[2017-07-28] MEDS ORDERED: FLU VACC QS 2017-18(36MOS+)/PF 0.5 ML DISP.SYRIN IM ONE (13:30)
--- NOTE | 2017-07-28 14:03 | NUR ---
LABORATORY ANIMAL CARE VETERINARIAN NOTE TELE REMOVED RT UPPER ARM MIDLINE, REMOVED TELE , REPORT GIBES TO SANTOS LOBO
--- NOTE | 2017-07-28 14:34 | NUR ---
INSPECTOR BOILER NOTE TAKEN TO [facility] UNIT ORDERED , WENT TO UNIT BY W\C WITH STABLE CONDITION, SPOKE WITH SANTOS LOBO AND ADMISSION NURSE
[2017-07-28] MEDS ORDERED: HYDR-552 PO (15:27)
[2017-07-28] MEDS ORDERED: GUAI5SYR PO (15:27)
[2017-07-28] MEDS ORDERED: BUPR-96 PO (15:27)
== END 2017-07-28 14:09 | DRG 312 ==
LOC: TELE1 18:51 → MEDSG1 07-28 12:47
PROVIDERS: ADMIT Family Medicine; ATTEND Family Medicine
PROC: 05H533Z Insertion of Infusion Device into Right Subclavian Vein, Percutaneous Approach (ICD-10-PCS; principal; 2017-07-25)
PROC: B546ZZA Ultrasonography of Right Subclavian Vein, Guidance (ICD-10-PCS; 2017-07-25)
DX: I95.1 Orthostatic hypotension (principal); N17.0 Acute kidney failure with tubular necrosis; E44.0 Moderate protein-calorie malnutrition; G93.89 Other specified disorders of brain; D64.9 Anemia, unspecified; S01.91XA Laceration without foreign body of unspecified part of head, initial encounter; G31.09 Other frontotemporal neurocognitive disorder; F02.80 Dementia in other diseases classified elsewhere, unspecified severity, without behavioral disturbance, psychotic disturbance, mood disturbance, and anxiety; W19.XXXA Unspecified fall, initial encounter; F03.90 Unspecified dementia, unspecified severity, without behavioral disturbance, psychotic disturbance, mood disturbance, and anxiety; J44.9 Chronic obstructive pulmonary disease, unspecified; I12.9 Hypertensive chronic kidney disease with stage 1 through stage 4 chronic kidney disease, or unspecified chronic kidney disease; I25.10 Atherosclerotic heart disease of native coronary artery without angina pectoris; N18.9 Chronic kidney disease, unspecified; Z73.6 Limitation of activities due to disability; Z79.899 Other long term (current) drug therapy; Y92.009 Unspecified place in unspecified non-institutional (private) residence as the place of occurrence of the external cause
CPT/HCPCS: 36415; 36569; 70450-TC; 80053-TC; 80061-TC; 81000-TC; 82306; 82728-TC; 83540-TC; 83735-TC; 84100-TC; 84439-TC; 84443-TC; 84484-TC; 85025-TC; 87040-TC; 93307-TC; 93880-TC; 94799-TC; 95819-TC; J7030; Q2036; Z7610

== ENCOUNTER 2017-07-28 14:42 | Inpatient (IN) | payer MEDICARE, BC ==
[~2017-07-28] VITALS: Ht 177.8 cm; Wt 65.8 kg
[~2017-07-28 14:42] MED LIST changes: +ACET-868 PO; +ALBU2.5V38 IH; -ALBU8.5H2 PO; -BUDE0.5A4; +BUPR300T52 PO; -GABA100C PO; +MAG30ORA PO; +MAGN400O6 PO; +QUET25TA PO
[2017-07-28 15:00] VITALS: BP 123/85
[2017-07-28] MEDS ORDERED: HYDR-552 PO (15:27)
[2017-07-28] MEDS ORDERED: BUPR-96 PO (15:27)
[2017-07-28] MEDS ORDERED: GUAI5SYR PO (15:27)
[2017-07-28] MEDS ORDERED: MAGNESIUM HYDROXIDE 30 ML UDC PO PRN ×2 (15:30→17:30)
[2017-07-28] MEDS ORDERED: ACETAMINOPHEN 325 MG TABLET PO PRN ×2 (15:30→17:30)
[2017-07-28] MEDS ORDERED: MAG HYDROX/AL HYDROX/SIMETH 30 ML UDC PO PRN ×2 (15:30→17:30)
[2017-07-28 15:40] VITALS: BP 123/85
[2017-07-28] MEDS: GABAPENTIN 100 MG CAPSULE PO SCH (17:36)
[2017-07-28] MEDS: QUETIAPINE FUMARATE 25 MG TABLET PO SCH (17:37)
[2017-07-28] MEDS: BUDESONIDE RESPULE INH 0.5 MG/2 ML AMPUL.NEB NEB SCH (19:30)
[2017-07-28 20:09] VITALS: BP 131/84
[2017-07-28] MEDS: TEMAZEPAM 7.5 MG CAPSULE PO PRN (22:57)
[2017-07-29] MEDS: BUDESONIDE RESPULE INH 0.5 MG/2 ML AMPUL.NEB NEB SCH ×2 (07:30→19:53)
[2017-07-29 07:42] LABS: CHOLESTEROL 171 mg/dL (<200); HDL CHOLESTEROL 68 mg/dL (40-60); LDL 83 mg/dL (0-99); TRIGLYCERIDES 62 mg/dL (30-150)
[2017-07-29 07:44] LABS: ALANINE AMINOTRANSFERASE 31 U/L (12-78); ALBUMIN 2.6 g/dL (3.4-5.0); ALKALINE PHOSPHATASE 76 U/L (46-116); ASPARTATE AMINOTRANSFERASE 29 U/L (15-37); BILIRUBIN,TOTAL 0.4 mg/dL (0.2-1.0); CALCIUM, SERUM 9.7 mg/dL (8.5-10.1); CARBON DIOXIDE 33 mmol/L (21-32); CHLORIDE 102 mmol/L (98-107); CREATININE 1.1 mg/dL (0.6-1.3); GLUCOSE 78 mg/dL (74-106); SODIUM SERUM 139 mmol/L (136-145); TOTAL PROTEIN, SERUM 6.6 g/dL (6.4-8.2); UREA NITROGEN, BLOOD 32 mg/dL (7-18)
[2017-07-29 08:00] VITALS: BP 132/82
[2017-07-29] MEDS: QUETIAPINE FUMARATE 25 MG TABLET PO SCH ×2 (08:35→16:08)
[2017-07-29] MEDS: CLOPIDOGREL BISULFATE 75 MG TABLET PO SCH (08:35)
[2017-07-29] MEDS: predniSONE 20 MG TABLET PO SCH (08:35)
[2017-07-29] MEDS: GABAPENTIN 100 MG CAPSULE PO SCH ×3 (08:35→16:08)
[2017-07-29] MEDS: LISINOPRIL (20MG) 20 MG TABLET PO SCH (08:35)
[2017-07-29] MEDS: TAMSULOSIN 0.4 MG CAP.SR.24H PO SCH (08:35)
[2017-07-29] MEDS: BUPROPION XL 150 MG TAB.ER.24 PO SCH (08:35)
[2017-07-29] MEDS: METOPROLOL SUCCINATE 25 MG TAB.SR.24H PO SCH (08:36)
[2017-07-29] MEDS: HYDROCHLOROTHIAZIDE 25 MG TABLET PO SCH (08:36)
[2017-07-29] MEDS ORDERED: QUETIAPINE FUMARATE 25 MG TABLET PO SCH (09:00)
[2017-07-29] MEDS ORDERED: BUPROPION XL 150 MG TAB.ER.24 PO SCH (09:00)
[2017-07-29] MEDS: clonazePAM 0.5 MG TABLET PO PRN (15:15)
[2017-07-29] MEDS: ALBUTEROL FS 2.5 MG/3 ML VIAL.NEB IH PRN (15:32)
[2017-07-29 16:00] VITALS: BP 130/79
[2017-07-29 20:00] VITALS: BP 152/92
[2017-07-29] MEDS ORDERED: QUETIAPINE FUMARATE 100 MG TABLET PO SCH (22:00)
[2017-07-30] MEDS: TEMAZEPAM 7.5 MG CAPSULE PO PRN (00:07)
[2017-07-30] MEDS: BUDESONIDE RESPULE INH 0.5 MG/2 ML AMPUL.NEB NEB SCH ×2 (07:30→19:30)
[2017-07-30 08:00] VITALS: BP 170/99
[2017-07-30] MEDS: TAMSULOSIN 0.4 MG CAP.SR.24H PO SCH (08:52)
[2017-07-30] MEDS: CLOPIDOGREL BISULFATE 75 MG TABLET PO SCH (08:52)
[2017-07-30] MEDS: QUETIAPINE FUMARATE 25 MG TABLET PO SCH ×2 (08:53→16:16)
[2017-07-30] MEDS: METOPROLOL SUCCINATE 25 MG TAB.SR.24H PO SCH (08:53)
[2017-07-30] MEDS: HYDROCHLOROTHIAZIDE 25 MG TABLET PO SCH (08:53)
[2017-07-30] MEDS: predniSONE 20 MG TABLET PO SCH (08:53)
[2017-07-30] MEDS: BUPROPION XL 150 MG TAB.ER.24 PO SCH (08:53)
[2017-07-30] MEDS: GABAPENTIN 100 MG CAPSULE PO SCH ×3 (08:53→16:14)
[2017-07-30] MEDS: LISINOPRIL (20MG) 20 MG TABLET PO SCH (08:54)
[2017-07-30 15:55] VITALS: BP 105/75
[2017-07-30 20:00] VITALS: BP 116/64
[2017-07-31 08:00] VITALS: BP 140/57
[2017-07-31] MEDS: BUDESONIDE RESPULE INH 0.5 MG/2 ML AMPUL.NEB NEB SCH ×2 (09:11→20:17)
[2017-07-31] MEDS: predniSONE 20 MG TABLET PO SCH (10:42)
[2017-07-31] MEDS: GABAPENTIN 100 MG CAPSULE PO SCH ×3 (10:43→17:57)
[2017-07-31] MEDS: QUETIAPINE FUMARATE 25 MG TABLET PO SCH ×2 (10:43→17:58)
[2017-07-31] MEDS: LISINOPRIL (20MG) 20 MG TABLET PO SCH (10:43)
[2017-07-31] MEDS: HYDROCHLOROTHIAZIDE 25 MG TABLET PO SCH (10:43)
[2017-07-31] MEDS: TAMSULOSIN 0.4 MG CAP.SR.24H PO SCH (10:44)
[2017-07-31] MEDS: CLOPIDOGREL BISULFATE 75 MG TABLET PO SCH (10:44)
[2017-07-31] MEDS: clonazePAM 0.5 MG TABLET PO PRN ×2 (10:44→22:09)
[2017-07-31] MEDS: BUPROPION XL 150 MG TAB.ER.24 PO SCH (10:44)
[2017-07-31] MEDS: METOPROLOL SUCCINATE 25 MG TAB.SR.24H PO SCH (10:45)
[2017-07-31] MEDS: NICOTINE PATCH (21MG) 21 MG PATCH.TD24 TD SCH (10:46)
[2017-07-31 16:00] VITALS: BP 108/68
[2017-07-31 20:00] VITALS: BP 107/76
[2017-08-01 08:00] VITALS: BP 128/64
[2017-08-01] MEDS: TAMSULOSIN 0.4 MG CAP.SR.24H PO SCH (09:03)
[2017-08-01] MEDS: predniSONE 20 MG TABLET PO SCH (09:03)
[2017-08-01] MEDS: CLOPIDOGREL BISULFATE 75 MG TABLET PO SCH (09:03)
[2017-08-01] MEDS: BUPROPION XL 150 MG TAB.ER.24 PO SCH (09:03)
[2017-08-01] MEDS: GABAPENTIN 100 MG CAPSULE PO SCH ×3 (09:03→16:31)
[2017-08-01] MEDS: NICOTINE PATCH (21MG) 21 MG PATCH.TD24 TD SCH (09:03)
[2017-08-01] MEDS: QUETIAPINE FUMARATE 25 MG TABLET PO SCH ×2 (09:03→16:31)
[2017-08-01] MEDS: LISINOPRIL (20MG) 20 MG TABLET PO SCH (09:04)
[2017-08-01] MEDS: METOPROLOL SUCCINATE 25 MG TAB.SR.24H PO SCH (09:04)
[2017-08-01] MEDS: HYDROCHLOROTHIAZIDE 25 MG TABLET PO SCH (09:05)
[2017-08-01] MEDS: BUDESONIDE RESPULE INH 0.5 MG/2 ML AMPUL.NEB NEB SCH ×2 (09:14→20:21)
[2017-08-01 16:07] VITALS: BP 113/74
[2017-08-01 20:00] VITALS: BP 104/66
[2017-08-01] MEDS: ALBUTEROL FS 2.5 MG/3 ML VIAL.NEB IH PRN (20:21)
[2017-08-01] MEDS ORDERED: ALBUTEROL FS 2.5 MG/0.5 ML VIAL.NEB NEB ONE (21:00)
[2017-08-01] MEDS ORDERED: IPRATROPIUM NEB FS 0.5 MG/2.5 ML AMPUL.NEB NEB ONE (21:00)
[2017-08-01] MEDS: MIRTAZAPINE 15 MG TABLET PO SCH (21:12)
[2017-08-01] MEDS ORDERED: ALBUTEROL FS 2.5 MG/0.5 ML VIAL.NEB ONE (21:26)
[2017-08-01] MEDS ORDERED: LEVOFLOXACIN 750 MG /D5W 150ML 150 ML IV ONE (23:27)
[2017-08-01] MEDS ORDERED: LEVOFLOXACIN 750 MG /D5W 150ML 750 MG in PREMIX 1 EA IV SCH (23:30)
[2017-08-01] MEDS ORDERED: CEFTRIAXONE 1 G in IV D5W 50 ML IV SCH (23:30)
[2017-08-02] MEDS: clonazePAM 0.5 MG TABLET PO PRN (01:23)
[2017-08-02 08:00] VITALS: BP 112/62
[2017-08-02] MEDS: TAMSULOSIN 0.4 MG CAP.SR.24H PO SCH (08:22)
[2017-08-02] MEDS: HYDROCHLOROTHIAZIDE 25 MG TABLET PO SCH (08:23)
[2017-08-02] MEDS: CLOPIDOGREL BISULFATE 75 MG TABLET PO SCH (08:23)
[2017-08-02] MEDS: predniSONE 20 MG TABLET PO SCH (08:24)
[2017-08-02] MEDS: NICOTINE PATCH (21MG) 21 MG PATCH.TD24 TD SCH (08:24)
[2017-08-02] MEDS: QUETIAPINE FUMARATE 25 MG TABLET PO SCH ×2 (08:24→17:05)
[2017-08-02] MEDS: GABAPENTIN 100 MG CAPSULE PO SCH ×3 (08:24→17:01)
[2017-08-02] MEDS: METOPROLOL SUCCINATE 25 MG TAB.SR.24H PO SCH (08:25)
[2017-08-02] MEDS: LISINOPRIL (20MG) 20 MG TABLET PO SCH (08:25)
[2017-08-02] MEDS: BUPROPION XL 150 MG TAB.ER.24 PO SCH (08:27)
[2017-08-02] MEDS: BUDESONIDE RESPULE INH 0.5 MG/2 ML AMPUL.NEB NEB SCH ×2 (08:30→20:13)
[2017-08-02] MEDS ORDERED: GUAIFENESIN/CODEINE 10 ML UDC PO PRN (13:30)
[2017-08-02 15:19] VITALS: BP_SYST 116; BP_SYST 137; BP_DIAS 59; BP_DIAS 89
[2017-08-02] MEDS: ALBUTEROL FS 2.5 MG/3 ML VIAL.NEB IH PRN ×2 (16:18→20:13)
[2017-08-02] MEDS ORDERED: LEVOFLOXACIN (750 MG) 750 MG TABLET PO SCH (20:00)
[2017-08-02 20:08] VITALS: BP 100/67
[2017-08-02] MEDS: AMOX/CLAVULANATE 875 MG TABLET PO SCH (21:25)
[2017-08-02] MEDS: MIRTAZAPINE 15 MG TABLET PO SCH (21:26)
[2017-08-03] MEDS: clonazePAM 0.5 MG TABLET PO PRN (01:58)
[2017-08-03] MEDS: ALBUTEROL FS 2.5 MG/3 ML VIAL.NEB IH PRN (03:27)
[2017-08-03 06:33] LABS: EOSINOPHILS % (AUTO) 0.3 % (0.0-6.0); HEMATOCRIT 29 % (39-51); HEMOGLOBIN 9.6 g/dL (13.5-17.5); LYMPHOCYTES # (AUTO) 0.3 /CMM (0.8-4.8); LYMPHOCYTES % (AUTO) 2.6 % (20.0-44.0); MEAN CORPUSCULAR HEMOGLOBIN 31 PG (26.0-33.0); MEAN CORPUSCULAR HGB CONC 33 g/dl (31.0-36.0); MEAN CORPUSCULAR VOLUME 93 fL (80-96); MONOCYTES # (AUTO) 0.7 /CMM (0.1-1.30); MONOCYTES % (AUTO) 6.3 % (2.0-12.0); NEUTROPHILS # (AUTO) 9.7 /CMM (1.8-8.9); NEUTROPHILS % (AUTO) 90.8 % (43.0-81.0); PLATELET COUNT (AUTO) 233 /CMM (150-450); RDW COEFFICIENT OF VARIATION 19.2 (11.5-15.0); RED BLOOD CELL COUNT(AUTO) 3.07 MIL/uL (4.5-6.0); WHITE BLOOD COUNT (AUTO) 10.7 K/uL (4.3-11.0)
[2017-08-03 06:52] LABS: CALCIUM, SERUM 9.6 mg/dL (8.5-10.1); CARBON DIOXIDE 36 mmol/L (21-32); CHLORIDE 99 mmol/L (98-107); CREATININE 1.4 mg/dL (0.6-1.3); GLUCOSE 89 mg/dL (74-106); MAGNESIUM 2.1 mg/dL (1.8-2.4); PHOSPHORUS 3.2 mg/dL (2.5-4.9); POTASSIUM 3.7 mmol/L (3.5-5.1); SODIUM SERUM 141 mmol/L (136-145); UREA NITROGEN, BLOOD 46 mg/dL (7-18)
[2017-08-03] MEDS: GABAPENTIN 100 MG CAPSULE PO SCH ×3 (07:57→16:47)
[2017-08-03] MEDS: QUETIAPINE FUMARATE 25 MG TABLET PO SCH ×2 (07:57→16:47)
[2017-08-03] MEDS: HYDROCHLOROTHIAZIDE 25 MG TABLET PO SCH (07:58)
[2017-08-03] MEDS: TAMSULOSIN 0.4 MG CAP.SR.24H PO SCH (07:58)
[2017-08-03] MEDS: METOPROLOL SUCCINATE 25 MG TAB.SR.24H PO SCH (07:58)
[2017-08-03] MEDS: predniSONE 20 MG TABLET PO SCH (07:59)
[2017-08-03] MEDS: CLOPIDOGREL BISULFATE 75 MG TABLET PO SCH (07:59)
[2017-08-03] MEDS: NICOTINE PATCH (21MG) 21 MG PATCH.TD24 TD SCH (07:59)
[2017-08-03] MEDS: LISINOPRIL (20MG) 20 MG TABLET PO SCH (07:59)
[2017-08-03] MEDS: BUPROPION XL 150 MG TAB.ER.24 PO SCH (07:59)
[2017-08-03 08:00] VITALS: BP 130/85
[2017-08-03] MEDS: AMOX/CLAVULANATE 875 MG TABLET PO SCH ×2 (08:00→21:57)
[2017-08-03] MEDS: BUDESONIDE RESPULE INH 0.5 MG/2 ML AMPUL.NEB NEB SCH ×2 (08:07→19:57)
[2017-08-03] MEDS ORDERED: Z GUARD REMEDY 2 OZ OINT TP PRN (14:30)
[2017-08-03 16:30] VITALS: BP 105/66
[2017-08-03 19:05] LABS: ABG BASE EXCESS 11.8 mmol/L; ABG PCO2 58.2 mmHg (35.0-45.0); ABG PH 7.431 (7.350-7.450); ABG PO2 83.9 mmHg (75.0-100.0); AaDO2 54.3 mmHg; COHb 0.4 % (0.5-1.5); MetHb 0.4 % (0.0-1.5); O2Hb 94.2 % (94.0-97.0); SITE, ABG Left Brachial
[2017-08-03 20:34] VITALS: BP 109/58
[2017-08-03] MEDS: MIRTAZAPINE 15 MG TABLET PO SCH (21:58)
[2017-08-04] MEDS: ALBUTEROL FS 2.5 MG/3 ML VIAL.NEB IH PRN ×2 (01:03→12:11)
[2017-08-04 06:48] LABS: EOSINOPHILS % (AUTO) 0.1 % (0.0-6.0); HEMATOCRIT 33 % (39-51); HEMOGLOBIN 10.9 g/dL (13.5-17.5); LYMPHOCYTES # (AUTO) 0.3 /CMM (0.8-4.8); MEAN CORPUSCULAR HEMOGLOBIN 32 PG (26.0-33.0); MEAN CORPUSCULAR HGB CONC 33 g/dl (31.0-36.0); MEAN CORPUSCULAR VOLUME 95 fL (80-96); MONOCYTES # (AUTO) 0.7 /CMM (0.1-1.30); MONOCYTES % (AUTO) 5.3 % (2.0-12.0); NEUTROPHILS # (AUTO) 12.1 /CMM (1.8-8.9); NEUTROPHILS % (AUTO) 92.6 % (43.0-81.0); PLATELET COUNT (AUTO) 285 /CMM (150-450); RDW COEFFICIENT OF VARIATION 19.1 (11.5-15.0); RED BLOOD CELL COUNT(AUTO) 3.47 MIL/uL (4.5-6.0); WHITE BLOOD COUNT (AUTO) 13.1 K/uL (4.3-11.0)
[2017-08-04 07:19] LABS: CALCIUM, SERUM 9.9 mg/dL (8.5-10.1); CHLORIDE 98 mmol/L (98-107); CREATININE 1.5 mg/dL (0.6-1.3); GLUCOSE 97 mg/dL (74-106); MAGNESIUM 2.3 mg/dL (1.8-2.4); PHOSPHORUS 3.4 mg/dL (2.5-4.9); POTASSIUM 4.4 mmol/L (3.5-5.1); SODIUM SERUM 141 mmol/L (136-145); UREA NITROGEN, BLOOD 48 mg/dL (7-18)
[2017-08-04 07:22] LABS: THYROID STIMULATING HORMONE 2.043 uIU/mL (0.358-3.74)
[2017-08-04] MEDS: BUDESONIDE RESPULE INH 0.5 MG/2 ML AMPUL.NEB NEB SCH (07:30)
[2017-08-04 08:00] VITALS: BP 126/94
[2017-08-04 08:25] LABS: CARBON DIOXIDE 40 mmol/L (21-32)
[2017-08-04] MEDS: BUPROPION XL 150 MG TAB.ER.24 PO SCH (08:57)
[2017-08-04] MEDS: predniSONE 20 MG TABLET PO SCH (08:57)
[2017-08-04] MEDS: GABAPENTIN 100 MG CAPSULE PO SCH ×3 (08:57→17:39)
[2017-08-04] MEDS: CLOPIDOGREL BISULFATE 75 MG TABLET PO SCH (08:57)
[2017-08-04] MEDS: HYDROCHLOROTHIAZIDE 25 MG TABLET PO SCH (08:57)
[2017-08-04] MEDS: TAMSULOSIN 0.4 MG CAP.SR.24H PO SCH (08:57)
[2017-08-04] MEDS: QUETIAPINE FUMARATE 25 MG TABLET PO SCH ×2 (08:58→17:39)
[2017-08-04] MEDS: LISINOPRIL (20MG) 20 MG TABLET PO SCH (08:58)
[2017-08-04] MEDS: METOPROLOL SUCCINATE 25 MG TAB.SR.24H PO SCH (08:58)
[2017-08-04] MEDS: NICOTINE PATCH (21MG) 21 MG PATCH.TD24 TD SCH (08:59)
[2017-08-04] MEDS: AMOX/CLAVULANATE 875 MG TABLET PO SCH (09:04)
[2017-08-04 16:03] VITALS: BP 100/66
[2017-08-04] MEDS ORDERED: FOLIC ACID 1 MG TABLET PO SCH (19:00)
[2017-08-05 08:32] LABS: IMMUNOGLOBULIN A, SERUM 96 mg/dL (61-437); IMMUNOGLOBULIN G, SERUM 902 mg/dL (700-1600); IMMUNOGLOBULIN M, SERUM 170 mg/dL (15-143)
[2017-08-06 06:07] LABS: *SPE A/G RATIO 1.1 (0.7-1.7); *SPE ALBUMIN 3.3 g/dL (2.9-4.4); *SPE ALPHA-1-GLOBULIN 0.4 g/dL (0.0-0.4); *SPE ALPHA-2-GLOBULIN 0.9 g/dL (0.4-1.0); *SPE BETA GLOBULIN 0.8 g/dL (0.7-1.3); *SPE GLOBULIN, TOTAL 3.1 g/dL (2.2-3.9); *SPE M-SPIKE Not Observed g/dL (Not Observed); *SPE PROTEIN TOTAL 6.4 g/dL (6.0-8.5)
== END 2017-08-04 18:20 | disposition short-term general hospital (02) | DRG 885 ==
LOC: GPS 14:42
PROVIDERS: ADMIT Psychiatry & Neurology Psychiatry; ATTEND Internal Medicine
DX: F25.9 Schizoaffective disorder, unspecified (principal); N17.0 Acute kidney failure with tubular necrosis; J15.9 Unspecified bacterial pneumonia; E88.09 Other disorders of plasma-protein metabolism, not elsewhere classified; D52.9 Folate deficiency anemia, unspecified; G62.9 Polyneuropathy, unspecified; C34.90 Malignant neoplasm of unspecified part of unspecified bronchus or lung; J44.0 Chronic obstructive pulmonary disease with (acute) lower respiratory infection; F23 Brief psychotic disorder; S22.42XA Multiple fractures of ribs, left side, initial encounter for closed fracture; F41.9 Anxiety disorder, unspecified; F32.9 Major depressive disorder, single episode, unspecified; F17.200 Nicotine dependence, unspecified, uncomplicated; G47.00 Insomnia, unspecified; I10 Essential (primary) hypertension; I25.10 Atherosclerotic heart disease of native coronary artery without angina pectoris; Z73.6 Limitation of activities due to disability; F03.90 Unspecified dementia, unspecified severity, without behavioral disturbance, psychotic disturbance, mood disturbance, and anxiety; R91.8 Other nonspecific abnormal finding of lung field; D63.8 Anemia in other chronic diseases classified elsewhere; X58.XXXA Exposure to other specified factors, initial encounter; Y93.9 Activity, unspecified; Y92.009 Unspecified place in unspecified non-institutional (private) residence as the place of occurrence of the external cause
CPT/HCPCS: 36415; 36600; 71010-TC; 71100-TC; 71250-TC; 80048-TC; 80053-TC; 80061-TC; 82728-TC; 82746; 82784; 83540-TC; 83735-TC; 84100-TC; 84155; 84165; 84443-TC; 85025-TC; 86334; 87081-TC; 94799-TC; A4216; A4606; A6402; A6403; J0696; J1956; J7050; J7060; Z7610

== ENCOUNTER 2017-08-04 18:36 | Inpatient (IN) | payer MEDICARE, BC ==
[~2017-08-04] VITALS: Ht 172.7 cm; Wt 66.8 kg
--- NOTE | 2017-08-04 18:20 | NUR ---
RN NOTES RECEIVED PATIENT FROM GPS. MILD SOB NO DISTRESS. PATIENT DENIES PAIN. PATIENT ORIENTED TO ROOM AND CALL LIGHT. BED IN A LOW POSITION, CALL LIGHT WITHIN PATIENT REACH. WILL MONITOR.
[2017-08-04 18:30] VITALS: BP 142/77
[~2017-08-04 18:36] MED LIST changes: -BUPR300T52 PO; +GUAI5SYR PO; +HYDR-552 PO; -HYDR25TA4 PO; -METO-302 PO; -TAMS0.4C34 PO
[2017-08-04 18:40] VITALS: BP 142/77
--- NOTE | 2017-08-04 18:57 | NUR ---
RN CLOSING NOTES NO SIGNIFICANT CHANGE IN PATIENT CONDITION THROUGHOUT THE SHIFT. NO SOB OR DISTRESS NOTED AT THIS TIME. PATIENT DENIES PAIN. PICTURES OF SKIN TAKEN AND TWO ATTEMPTS MADE TO INSERT IV THAT WERE UNSUCCESSFUL. BED IN A LOW POSITION, CALL LIGHT WITHIN PATIENT REACH. WILL ENDORSE FOR DEMARCO.
[2017-08-04] MEDS ORDERED: TEMAZEPAM 7.5 MG CAPSULE PO PRN (19:30)
[2017-08-04] MEDS ORDERED: clonazePAM 0.5 MG TABLET PO PRN (19:30)
--- NOTE | 2017-08-04 19:45 | NUR ---
RN OPEN NOTES RECEIVED PATIENT AWAKE IN BED. A/O X2. NO SIGNS OF DISTRESS OR DISCOMFORT. BREATHING EVEN AND UNLABORED. ON 4LPM O2 VIA NC. IV ACCESS IN R WRIST, PATENT AND INTACT, NO SIGNS OF REDNESS OR INFILTRATION. BED IN LOW LOCKED POSITION WITH SIDE RAILS X3. SAFETY MEASURES IN PLACE. CALL LIGHT WITHIN REACH. WILL CONTINUE TO MONITOR.
[2017-08-04 20:00] VITALS: BP 106/77
[2017-08-04] MEDS ORDERED: MAG HYDROX/AL HYDROX/SIMETH 30 ML UDC PO PRN ×2 (22:00→22:30)
[2017-08-04] MEDS ORDERED: GUAIFENESIN/D-METHORPHAN HB 5 ML UDC PO PRN (22:00)
[2017-08-04] MEDS ORDERED: HYDROCODONE/APAP 5/325MG 1 EACH TABLET PO PRN ×2 (22:00→22:30)
[2017-08-04] MEDS ORDERED: ALBUTEROL FS 2.5 MG/3 ML VIAL.NEB IH PRN (22:00)
[2017-08-04] MEDS ORDERED: ACETAMINOPHEN 325 MG TABLET PO PRN ×2 (22:00→22:30)
[2017-08-04] MEDS ORDERED: MAGNESIUM HYDROXIDE 30 ML UDC PO PRN ×2 (22:00→22:30)
[2017-08-04] MEDS ORDERED: ALBUTEROL FS 2.5 MG/0.5 ML VIAL.NEB NEB PRN (22:30)
[2017-08-04] MEDS ORDERED: ONDANSETRON HCL/PF 4 MG/2 ML VIAL IVP PRN (22:30)
[2017-08-04] MEDS ORDERED: IPRATROPIUM NEB FS 0.5 MG/2.5 ML AMPUL.NEB NEB PRN (22:30)
[2017-08-04] MEDS ORDERED: ZOLPIDEM TARTRATE 5 MG TABLET PO PRN (22:30)
[2017-08-04] MEDS ORDERED: Z GUARD REMEDY 2 OZ OINT TP PRN (22:30)
[2017-08-04] MEDS ORDERED: ENOXAPARIN SODIUM 40 MG/0.4 ML DISP.SYRIN SQ ONE (22:36)
[2017-08-04] MEDS ORDERED: methylPREDNISolone SOD SUCC 40 MG/ML VIAL ONE (22:37)
[2017-08-04] MEDS: MIRTAZAPINE 15 MG TABLET PO SCH (22:48)
[2017-08-04] MEDS: ENOXAPARIN SODIUM 40 MG/0.4 ML DISP.SYRIN SQ SCH (22:51)
[2017-08-04] MEDS: methylPREDNISolone SOD SUCC 40 MG/ML VIAL IV SCH (23:17)
[2017-08-04] MEDS ORDERED: ALBUTEROL FS 2.5 MG/0.5 ML VIAL.NEB ONE (23:34)
[2017-08-04] MEDS ORDERED: IPRATROPIUM NEB FS 0.5 MG/2.5 ML AMPUL.NEB ONE (23:35)
[2017-08-05] MEDS ORDERED: methylPREDNISolone SOD SUCC 125 MG/2ML VIAL IV SCH
--- NOTE | 2017-08-05 01:00 | NUR ---
RN NOTES PATIENT BECAME VERY DISORIENTED AND ANXIOUS, ATTEMPTING TO GET OUT OF BED UNASSISTED, PULLED IV OUT.ADMINISTERED KLONOPIN .25 MG ORDERED FOR ANXIETY. WILL CONTINUE TO MONITOR.
[2017-08-05] MEDS ORDERED: methylPREDNISolone SOD SUCC 40 MG/ML VIAL ONE (05:11)
[2017-08-05] MEDS: methylPREDNISolone SOD SUCC 40 MG/ML VIAL IV SCH ×3 (05:23→17:21)
[2017-08-05 06:26] LABS: HEMATOCRIT 30 % (39-51); HEMOGLOBIN 9.7 g/dL (13.5-17.5); LYMPHOCYTES # (AUTO) 0.1 /CMM (0.8-4.8); MEAN CORPUSCULAR HEMOGLOBIN 31 PG (26.0-33.0); MEAN CORPUSCULAR HGB CONC 33 g/dl (31.0-36.0); MEAN CORPUSCULAR VOLUME 95 fL (80-96); MONOCYTES # (AUTO) 0.1 /CMM (0.1-1.30); MONOCYTES % (AUTO) 1.2 % (2.0-12.0); NEUTROPHILS # (AUTO) 11.5 /CMM (1.8-8.9); NEUTROPHILS % (AUTO) 97.8 % (43.0-81.0); PLATELET COUNT (AUTO) 236 /CMM (150-450); RDW COEFFICIENT OF VARIATION 19.6 (11.5-15.0); RED BLOOD CELL COUNT(AUTO) 3.12 MIL/uL (4.5-6.0); WHITE BLOOD COUNT (AUTO) 11.8 K/uL (4.3-11.0)
--- NOTE | 2017-08-05 06:45 | NUR ---
RN CLOSING NOTES PATIENT RESTING IN BED, EASILY AROUSABLE. A/O X2, WITH PERIODS OF CONFUSION. NO SIGNS OF DISTRESS OR DISCOMFORT. BREATHING EVEN AND UNLABORED. ON 2LPM O2 VIA NC. IV ACCESS IN LFA, PATENT AND INTACT, NO SIGNS OF REDNESS OR INFILTRATION. ALL NEEDS MET. NO SIGNIFICANT CHANGES THROUGH THE NIGHT. BED IN LOW LOCKED POSITION WITH SIDE RAILS X3. SAFETY MEASURES IN PLACE. CALL LIGHT WITHIN REACH. WILL ENDORSE TO AM SHIFT FOR DEMARCO.
[2017-08-05 06:50] LABS: CALCIUM, SERUM 9.5 mg/dL (8.5-10.1); CHLORIDE 99 mmol/L (98-107); CREATININE 1.4 mg/dL (0.6-1.3); GLUCOSE 118 mg/dL (74-106); MAGNESIUM 2.3 mg/dL (1.8-2.4); PHOSPHORUS 4.1 mg/dL (2.5-4.9); POTASSIUM 4.3 mmol/L (3.5-5.1); SODIUM SERUM 141 mmol/L (136-145); UREA NITROGEN, BLOOD 48 mg/dL (7-18)
--- NOTE | 2017-08-05 07:25 | NUR ---
RN MS NOTES PATIENT ASLEEP BUT EASILY AROUSABLE, SITTER AT BEDSIDE, NO S/SX OF PAIN OR DISCOMFORT AT THIS TIME, NO DISTRESS NOTED, SAFETY MEASURES IN PLACED, CALL LIGHT WITHIN REACH, WILL CONTINUE TO MONITOR.
[2017-08-05 08:00] VITALS: BP 112/76
[2017-08-05 08:06] LABS: CARBON DIOXIDE 40 mmol/L (21-32)
[2017-08-05] MEDS ORDERED: predniSONE 20 MG TABLET PO SCH (09:00)
[2017-08-05] MEDS: CLOPIDOGREL BISULFATE 75 MG TABLET PO SCH (09:37)
[2017-08-05] MEDS: BUPROPION XL 150 MG TAB.ER.24 PO SCH (09:37)
[2017-08-05] MEDS: QUETIAPINE FUMARATE 25 MG TABLET PO SCH ×2 (09:37→17:22)
[2017-08-05] MEDS: GABAPENTIN 100 MG CAPSULE PO SCH ×3 (09:37→17:21)
[2017-08-05] MEDS: LISINOPRIL (20MG) 20 MG TABLET PO SCH (09:38)
--- NOTE | 2017-08-05 10:40 | NUR ---
RN MS NOTES DR. CASTILLO AWARE OF CO2 RESULT. RECEIVED NEW ORDER. ORDER NOTED AND CARRIED OUT. PATIENT CURRENTLY ON O2 AT 2LPM VIA NC WITH SPO2 OF 94-96%. NO SOB NOTED AT THIS TIME, WILL CONTINUE TO MONITOR.
[2017-08-05] MEDS: ALBUTEROL FS 2.5 MG/0.5 ML VIAL.NEB NEB SCH ×3 (11:41→19:57)
[2017-08-05] MEDS: IPRATROPIUM NEB FS 0.5 MG/2.5 ML AMPUL.NEB NEB SCH ×3 (11:41→19:57)
--- NOTE | 2017-08-05 12:04 | NUR ---
RN PLACE ON RM AIR TO DRAW AN ABG. (SEE ABG RESULT) O2 LOW PLACED BACK ON 2 L AFTER TX Addendum: 08/05/17 at 1210 by AZALIA PATINO RT Amended: Links added.
[2017-08-05 12:45] LABS: ABG BASE EXCESS 7.6 mmol/L; ABG OXYGEN SATURATION 80.4 % (92.0-98.5); ABG PCO2 59.7 mmHg (35.0-45.0); ABG PH 7.376 (7.350-7.450); ABG PO2 48.2 mmHg (75.0-100.0); COHb 0.3 % (0.5-1.5); MetHb 0.7 % (0.0-1.5); O2Hb 79.6 % (94.0-97.0); SITE, ABG Left Brachial; VENT MODE, BG ROOM AIR
--- NOTE | 2017-08-05 13:30 | NUR ---
RN MS NOTES PATIENT ALERT AND ORIENTED X2, BREATHING EVEN AND UNLABORED, NO DISTRESS NOTED, ON O2 AT 3LPM VIA NC WITH SPO2 93-94%, DR. CASTILLO MADE AWARE OF ABG RESULT, WITH NO NEW ORDER AT THIS TIME. ORDER NOTED AND CARRIED OUT.
[2017-08-05 16:01] VITALS: BP 120/60
--- NOTE | 2017-08-05 18:51 | NUR ---
RN MS NOTES PATIENT ALERT AND ORIENTED X2, ASLEEP MOST OF THE TIME DURING THIS SHIFT, SITTER AT BEDSIDE, BREATHING EVEN AND UNLABORED, NO SOB NOTED, ON O2 AT 3LPM VIA NC WITH SPO2 AT 94-96%, ALL NEEDS ATTENDED AND MET, ASSISTED WITH TURNING AND REPOSITIONING, CALL LIGHT WITHIN REACH, SAFETY MEASURES IN PLACED, WILL ENDORSE TO FASHION ARTIST FOR DEMARCO.
--- NOTE | 2017-08-05 19:30 | NUR ---
MS ELECTRON BEAM WELDER SETTER INITIAL NOTES RECEIVED PT IN BED AWAKE AND ALERT SITTING AT THIS TIME AND READY TO HAVE A BREATHING TREATMENT . DENIES ANY PAIN OR ANY DISCOMFORT. NO SOB NOTED AT THIS TIME. HEPLOCK AT THIS TIME PATENT AND INTACT. CALMED AND COOPERATIVE AT THIS TIME. SITTER AT THE BEDSIDE FOR SAFETY. KEPT HIM WARM AND COMFORTABLE AT ALL TIMES. PLACE CALL LIGHT AT REACH. WILL CONTINUE TO MONITOR.
[2017-08-05 20:00] VITALS: BP 120/60
[2017-08-05] MEDS: MIRTAZAPINE 15 MG TABLET PO SCH (21:31)
[2017-08-05] MEDS: ENOXAPARIN SODIUM 40 MG/0.4 ML DISP.SYRIN SQ SCH (21:34)
--- NOTE | 2017-08-06 | NUR ---
WASHCLOTH FOLDER/NOTES PT SLEEPING COMFORTABLY IN BED WITHOUT ANY ACUTE DISTRESS NOTED. BREATHING EVEN AND NON-LABORED. KEPT HIM WARM AND COMFORTABLE AT ALL TIMES. SITTER AT THE BEDSIDE FOR SAFETY. WILL CONTINUE TO MONITOR.
[2017-08-06] MEDS: methylPREDNISolone SOD SUCC 40 MG/ML VIAL IV SCH ×5 (00:45→23:58)
[2017-08-06] MEDS: ALBUTEROL FS 2.5 MG/0.5 ML VIAL.NEB NEB SCH ×4 (01:59→20:27)
[2017-08-06] MEDS: IPRATROPIUM NEB FS 0.5 MG/2.5 ML AMPUL.NEB NEB SCH ×4 (01:59→20:27)
--- NOTE | 2017-08-06 07:25 | NUR ---
RN OPENING NOTES PATIENT IN BED RESTING, RESPONSIVE, A/OX 2-3. HOB ELEVATED. ON 2LPM O2 VIA NC. NO ACUTE DISTRESS, NO SOB NOTED. DENIES PAIN OR DISCOMFORT. IV SITE INTACT AND PATENT. KEPT PATIENT SAFE AND COMFORTABLE. BED IN LOCKED LOW POSITION, SIDERAILS UPX2. CALL LIGHT IN REACH. WILL CONTINUE TO MONIOTR ACCORDINGLY. Addendum: 08/06/17 at 0748 by [place] OSUNA SITTER ON BEDSIDE FOR SAFETY
--- NOTE | 2017-08-06 07:26 | NUR ---
ms u.s. representative closing notes pt woke up now calmed and quiet, no signs of confusion noted. slept well but arouses to touch. stable symone the night . all due meds given and all needs met. kept him warm and comfortable at all times, heplock still patent and intact and covered with arm sleeved. sitter at the bedside for safety. will continue to monitor. place call light at reach.
[2017-08-06 08:00] VITALS: BP_SYST 141; BP_DIAS 81; BP_DIAS 91
[2017-08-06] MEDS ORDERED: FLUTICASONE/VILANTEROL 1 EACH BLST.W.DEV IH SCH (09:00)
[2017-08-06] MEDS: GABAPENTIN 100 MG CAPSULE PO SCH ×3 (09:06→17:35)
[2017-08-06] MEDS: BUPROPION XL 150 MG TAB.ER.24 PO SCH (09:07)
[2017-08-06] MEDS: CLOPIDOGREL BISULFATE 75 MG TABLET PO SCH (09:07)
[2017-08-06] MEDS: LISINOPRIL (20MG) 20 MG TABLET PO SCH (09:08)
[2017-08-06] MEDS: QUETIAPINE FUMARATE 25 MG TABLET PO SCH ×2 (09:09→17:36)
--- NOTE | 2017-08-06 12:15 | NUR ---
RN NOTES PATIENT AMBULATED WITH PT. PER PT, PATIENT WAS NOT ABLE TO TOLERATE IT, COMPLAINED OF DIZZINESS, SAT PATIENT ON CHAIR, BP WENT DOWN BUT WITH IN NORMAL RANGE, O2 SATURATION 78% ON 2LPM VIA NC, INCREASED O2 TO 4LPM WITH 92% SATURATION. WILL REASSESS AND MONIOTR PATIENT ACCORDINGLY.
--- NOTE | 2017-08-06 12:30 | NUR ---
RN NOTES REASSESSED PATIENT, IN STABLE CONDITION. 94% SATURATION ON 2LPM VIA NC. DB=825/83. MD MADE AWARE. WILL CONTINUE TO MONITOR ACCORDINGLY.
[2017-08-06 16:00] VITALS: BP 99/58
--- NOTE | 2017-08-06 19:25 | NUR ---
RN CLOSING NOTES PATIENT RESTING, RESPONSIVE, SITTER AT BEDSIDE FOR SAFETY. ON 2LPM O2 VIA NC, SATURATION OF 96%. NO ACUTE DISTRESS, NO SOB NOTED. DENIES PAIN OR DISCOMFORT. ALL NEEDS ATTENDED AND PROVIDED. KEPT PATIENT SAFE AND COMFORTABLE. BED IN LOCKED, LOW POSITION, HOB ELEVATED, SIDERAILS UPX2. CALL LIGHT IN REACH. ENDORSED TO NIGHT RN FOR DEMARCO.
--- NOTE | 2017-08-06 19:30 | NUR ---
MS RN OPENING NOTES: PATIENT SITTING UP IN BED, AOX3, ON O2 AT 2 LPM VIA NC, O2 SAT AT 99%. APPEARS CALM AND IN NO DISTRESS, STATES THAT HE "JUST NEEDS OXYGEN". NO SOB NOTED. BREATH SOUNDS CLEAR TO AUSCULTATION. PIV OVER LFA G22 INTACT AND PATENT TO FLUSH. PROVIDED FOR COMFORT AND SAFETY. BED IN LOWEST AND LOCKED POSITION, SIDERAILS UP X 3, SITTER AT BEDSIDE. WILL CONT TO MONITOR.
[2017-08-06 20:00] VITALS: BP 102/70
[2017-08-06] MEDS: MIRTAZAPINE 15 MG TABLET PO SCH (21:56)
[2017-08-06] MEDS: ENOXAPARIN SODIUM 40 MG/0.4 ML DISP.SYRIN SQ SCH (21:57)
--- NOTE | 2017-08-07 01:30 | NUR ---
RN NOTES: NOTED SIGNS OF INFILTRATION OVER IV SITE AT LFA. D'ATTILA LINE. SEVERAL ATTEMPTS MADE TO REINSERT NEW IV LINE AT RFA, BUT VEINS EASILY BULGE. LASHELL PURI FROM ICU WAS ABLE TO INSERT NEW IV LINE AT LFA (DIFFERENT VEIN/ SITE) G20, WITH GOOD BLOOD RETURN.
[2017-08-07] MEDS: IPRATROPIUM NEB FS 0.5 MG/2.5 ML AMPUL.NEB NEB SCH ×3 (01:40→14:26)
[2017-08-07] MEDS: ALBUTEROL FS 2.5 MG/0.5 ML VIAL.NEB NEB SCH ×3 (01:40→14:26)
--- NOTE | 2017-08-07 04:30 | NUR ---
RN NOTES: SPOKE TO SHEILA FROM LAB RE PATIENT'S UPEP + IFA. PER SHEILA, CALL LAB AM SHIFT TO VERIFY TYPE OF URINE COLLECTION.
[2017-08-07] MEDS: methylPREDNISolone SOD SUCC 40 MG/ML VIAL IV SCH (06:09)
--- NOTE | 2017-08-07 06:30 | NUR ---
RN NOTES: SPOKE TO KERRIE FROM LAB, UPEP IS 24 HR URINE COLLECTION. OBTAINED COLLECTION BOTTLE FROM LAB AND INSTRUCTIONS GIVEN TO PATIENT AND SITTER.
--- NOTE | 2017-08-07 06:53 | NUR ---
MS RN CLOSING NOTES: PATIENT IN BED, AOX2, ON O2 AT 2 LPM VIA NC, BREATHING EVEN AND UNLABORED. APPEARS CALM AND IN NO DISTRESS. PIV OVER LFA G 20 INTACT AND PATENT TO FLUSH, PROTECTED WITH SLEEVE. DUE MEDS GIVEN. PROVIDED FOR COMFORT AND SAFETY. BED IN LOWEST AND LOCKED POSITION, SIDERAILS UPX3, SITTER AT BEDSIDE. WILL ENDORSE TO AM RN FOR DEMARCO.
--- NOTE | 2017-08-07 07:25 | NUR ---
RN OPENING NOTES PATIENT IN BED RESTING, RESPONSIVE, A/OX 2-3. HOB ELEVATED. ON 2LPM O2 VIA NC. NO ACUTE DISTRESS, NO SOB NOTED. DENIES PAIN OR DISCOMFORT. IV SITE INTACT AND PATENT. KEPT PATIENT SAFE AND COMFORTABLE. SITTER AT BEDSIDE FOR SAFETY. BED IN LOCKED LOW POSITION, SIDERAILS UPX2. CALL LIGHT IN REACH. WILL CONTINUE TO MONIOTR ACCORDINGLY.
[2017-08-07 07:55] LABS: HEMATOCRIT 32 % (39-51); HEMOGLOBIN 10.4 g/dL (13.5-17.5); LYMPHOCYTES # (AUTO) 0.1 /CMM (0.8-4.8); LYMPHOCYTES % (AUTO) 0.8 % (20.0-44.0); MEAN CORPUSCULAR HEMOGLOBIN 31 PG (26.0-33.0); MEAN CORPUSCULAR HGB CONC 33 g/dl (31.0-36.0); MEAN CORPUSCULAR VOLUME 95 fL (80-96); MONOCYTES # (AUTO) 0.2 /CMM (0.1-1.30); MONOCYTES % (AUTO) 1.4 % (2.0-12.0); NEUTROPHILS # (AUTO) 16.8 /CMM (1.8-8.9); NEUTROPHILS % (AUTO) 97.8 % (43.0-81.0); PLATELET COUNT (AUTO) 232 /CMM (150-450); RDW COEFFICIENT OF VARIATION 18.9 (11.5-15.0); RED BLOOD CELL COUNT(AUTO) 3.31 MIL/uL (4.5-6.0); WHITE BLOOD COUNT (AUTO) 17.1 K/uL (4.3-11.0)
[2017-08-07 08:00] VITALS: BP 121/69
[2017-08-07 08:12] LABS: CALCIUM, SERUM 9.7 mg/dL (8.5-10.1); CARBON DIOXIDE 39 mmol/L (21-32); CHLORIDE 95 mmol/L (98-107); CREATININE 1.5 mg/dL (0.6-1.3); GLUCOSE 117 mg/dL (74-106); MAGNESIUM 2.2 mg/dL (1.8-2.4); PHOSPHORUS 3.1 mg/dL (2.5-4.9); POTASSIUM 3.8 mmol/L (3.5-5.1); SODIUM SERUM 131 mmol/L (136-145); UREA NITROGEN, BLOOD 61 mg/dL (7-18)
[2017-08-07] MEDS: QUETIAPINE FUMARATE 25 MG TABLET PO SCH (09:36)
[2017-08-07] MEDS: BUPROPION XL 150 MG TAB.ER.24 PO SCH (09:36)
[2017-08-07] MEDS: CLOPIDOGREL BISULFATE 75 MG TABLET PO SCH (09:36)
[2017-08-07] MEDS: GABAPENTIN 100 MG CAPSULE PO SCH ×2 (09:37→14:08)
[2017-08-07] MEDS: LISINOPRIL (20MG) 20 MG TABLET PO SCH (09:37)
[2017-08-07 16:00] VITALS: BP 121/73
--- NOTE | 2017-08-07 18:00 | NUR ---
APPLICATION PACKAGING CONSULTANT NOTES DISCHARGE PATIENT IN STABLE CONDITION ACCOMPANIED BY MANAGEMENT COORDINATOR AND BROTHER. DISCHARGE INSTRUCTION/TEACHING GIVEN, PATIENT VERBALIZED UNDERSTANDING. REPORT GIVEN TO LASHELL PINA AT [facility], DISCHARGE INSTRUCTIONS GIVEN ALSO. D/C IV SITE, NO COMPLICATIONS, NO BLEEDING. ALL BELONGINGS AND DISCHARGE PAPERWORK GIVEN. REFUSED PHOTO OF BLE, PHOTOS ONLY TAKEN ON BUE.
[2017-08-08] MEDS ORDERED: methylPREDNISolone SOD SUCC 40 MG/ML VIAL IV SCH (09:00)
== END 2017-08-07 17:59 | DRG 189 ==
LOC: MED 18:36
DX: J96.00 Acute respiratory failure, unspecified whether with hypoxia or hypercapnia (principal); G62.9 Polyneuropathy, unspecified; J44.1 Chronic obstructive pulmonary disease with (acute) exacerbation; C34.11 Malignant neoplasm of upper lobe, right bronchus or lung; D64.9 Anemia, unspecified; F25.9 Schizoaffective disorder, unspecified; F03.90 Unspecified dementia, unspecified severity, without behavioral disturbance, psychotic disturbance, mood disturbance, and anxiety; Z73.6 Limitation of activities due to disability; I25.10 Atherosclerotic heart disease of native coronary artery without angina pectoris; F17.200 Nicotine dependence, unspecified, uncomplicated; F32.9 Major depressive disorder, single episode, unspecified; Z79.899 Other long term (current) drug therapy; Z92.3 Personal history of irradiation; I10 Essential (primary) hypertension; E53.8 Deficiency of other specified B group vitamins
CPT/HCPCS: 36415; 36600; 80048-TC; 82232; 82803-TC; 83735-TC; 84100-TC; 85025-TC; 87081-TC; 94799-TC; 97116-TC; 97530-TC; J1650; J2920